=== PATIENT | female | born 1950 | race African-American/Black ===

== ENCOUNTER → 2018-08-27 | Day surgery (SDC) | payer MEDICARE ==
--- OUTSIDE RECORDS SUMMARY | 2018-08-27 08:57 | XMS REPORT ---
:1950 [facility] [address] [place] [address] [address]. [address] [place] [address] Care Team Providers Name Role Phone Unavailable Unavailable Unavailable Problems This patient has no known problems. Allergies, Adverse Reactions, Alerts This patient has no known allergies or adverse reactions. Medications This patient has no known medications.
--- OUTSIDE RECORDS SUMMARY | 2018-08-27 08:57 | XMS REPORT | Continuity of Care Document ---
:1950 Author Organization [facility] [employer] Care Team Providers Name Role Phone [employer] Unavailable Unavailable Problems Problem Status Onset Classification Date Comments Source Date Reported DX: Active 07/19/19 [facility] K80.20=CALCULUS 17 [place] OF GALLBLADDER WITHO MRSA-wound1 Active 02/23/19 Problem 01/19/2017 Problem MH 10 added by Grace Alvarez [facility] Expert. Antonio HLD - Resolved Problem 01/19/2017 Hyperlipidemia Grace Alvarez MRSA infection Resolved Problem 01/19/2017 Grace Alvarez CALCULUS OF Active [facility] GALLBLADDER W/O [place] CHOLECYSTITI Medications No Data Provided for This Section Allergies, Adverse Reactions, Alerts Substance Category Reaction Severity Reaction Status Date Comments Source type Reported penicillins Assertion Drug Active OPIRhys allergy [place] Immunizations No Data Provided for This Section Results Order Results Value Reference Date Interpretation Comments Source Name Range CHEM Creatinine 1.00 0.50 - 1.40 07/18/ Result PANEL Lvl 2017 Comment: Run Antonio on I-Stat using whole blood.07/19/19 17 11:39 by sp CHEM eGFR 68 07/18/ Result PANEL 2017 Comment: The [place] eGFR is calculated using the CKD-EPI formula. In most young, healthy individuals the eGFR will be >90 mL/min/1.73m2. The eGFR declines with age. An eGFR of 60-89 may be normal in some populations, particularly the elderly, for whom the CKD-EPI formula has not been extensively validated. Use of the eGFR is not recommended in the following populations:<b r/>
Indivi duals with unstable creatinine concentrations , including patients and those with serious co-morbid conditions.

Patient s with extremes in muscle mass or diet.

The data above are obtained from the National Kidney Disease Education Program (NKDEP) which additionally recommends that when the eGFR is used in patients with extremes of body mass index for purposes of drug dosing, the eGFR should be multiplied by the estimated BMI. Pathology Reports No Data Provided for This Section Diagnostic Reports Report Value Date Source Abdomen w/wo IV Abdomen w/wo IV contrast CT 01/16/[address] [place] [address] TECHNIQUE: Contiguous transaxial images of the abdomen were performed from the lung bases to the superior pubic rami without and with IV contrast. CLINICAL HX: - renal mass; COMPARISON: CT abdomen pelvis 07/18/2016, MRI abdomen 08/12/2016 FINDINGS: NONCONTRAST CT images: No tract calculi are evident. CT ABDOMEN with: Lower Chest: The lung bases are clear. GI Tract: Moderate to large amount of retained stool is present in the visualized portion of the colon. No evidence to suggest small or large bowel obstruction. There is no evidence for free fluid or free air in the abdomen. Tract and retroperitoneum: 14 mm x 11 mm heterogeneous density lesion in the upper pole of right kidney laterally is unchanged in size and appearance from previous CT of 07/18/2016. Tiny cyst, lower pole of right kidney, unchanged. No significant retroperitoneal lymphadenopathy is noted. Abdominal viscera: Mild fatty infiltration of liver. The spleen, pancreas and both adrenals are unremarkable in appearance. Cholelithiasis. Vasculature: Aortoiliac atherosclerotic disease. Bone and Soft tissues: Large ventral abdominal hernia containing small bowel and large bowel similar to previous study. No evidence for small or large bowel obstruction. No significant bony abnormality is noted. IMPRESSION: Heterogeneously dense lesion in the upper pole of right kidney superiorly and laterally is stable in size and appearance from previous CT and MR studies. Additional six-month follow-up either with pre a nd postcontrast CT or pre and postcontrast MRI is recommended to document continued stability. Gallbladder is mildly contracted. Cholelithiasis. Very large ventral abdominal hernia unchanged from previous study. No significant interval change from previous study of 07/18/2016. SL: [id number] Abdomen w/wo contrast Abdomen w/wo contrast MRI 08/12/2016 10:47 AM CDT 2016 ALDO Alvarez MRI Ordering Physician: Moses Lamb MD CLINICAL INDICATION: K80.20 Calculus of gallbladder without cholecystitis without obstruction;N28.89 Other specified disorders of kidney and ureter - N28.89 Other specified disorders of kidney and ureter; COMPARISON: Abdominopelvic CT 07/18/2016 TECHNIQUE: Multiplanar, multisequence magnetic resonance images of the abdomen were obtained without IV gadolinium contrast. Subsequent T1 fat- suppressed post-IV gadolinium contrast dynamic phase imaging was performed. FINDINGS: Right kidney superolateral cortical oval-shaped lesion measuring 1 x 1.5 x 1 cm demonstrates T2 hypointensity, T1 isointensity, and no enhancement. No other enhancing renal mass is present in either kid aisha. Tiny right renal inferior pole cortical cyst is present. No hydronephrosis is present. Liver reveals no focal signal abnormality or enhancing mass. No intrahepatic or extrahepatic delivery duct dilatation is present. Contracted gallbladder contains a few gallstones. Common bile duct measures 6 mm in caliber. Spleen, pancreas, and adrenal glands are normal. Vascular structures are patent. No lymphadenopathy is present. IMPRESSION: Right renal superolateral cortical 1 x 1.5 x 1 (craniocaudal) cm noncystic yet nonenhancing mass. Recommend repeat MRI abdomen without and with IV contrast in 6 months to assess for potential growth or stability. SL: [id number] Abdomen w IV contrast Patient Name: RAMYA HDEZ 07/18/2016 [facility] CT : 1950; Age: 66 years y/o Female MR: [id number] * I. COMPUTED TOMOGRAPHY SCAN OF THE ABDOMEN with contrast. HISTORY: Generalized nonspecific abdominal pain, cholelithiasis. COMPARISON: None * TECHNIQUE: I. COMPUTED TOMOGRAPHY SCAN OF THE ABDOMEN with contrast: Helical CT images were obtained on a multidetector computed tomography from the domes the diaphragms to the the mid pelvis following the intravenous administration of nonionic iodinated contrast. Oral contrast was also provided. Coronal and sagittal reconstructions were obtained. CT radiation dose DLP: 1271 mGy-cm FINDINGS: There is no evidence of an acute intra-abdominal process. There is no free intraperitoneal gas, intra-abdominal abscess, focal inflammation, or bowel obstruction. There is cholelithiasis. Multiple small gallstones are noted. The gallbladder is contracted. The common bile duct is borderline on the order of 5.5 -- 6 mm in diameter. There is no intrahepatic ductal dilatation. There is a very small (approximately 13 x 11 mm) low-density lesion involving the lateral aspect the upper -- mid polar region of the right kidney best seen on image 31. This does not meet the criteria for simple cyst. Therefore, a small renal neoplasm cannot be excluded. Comparison with any prior studies, if available, would be helpful. If these are not available, further evaluation by magnetic reson ance imaging or continued follow-up studies may be indicated. There is a very large anterior abdominal wall hernia. There is a very large defect in the anterior abdominal wall measuring approximately 13.5 cm in diameter. There is herniation of small bowel and colo n limiting the appendix into the hernia. The hernia is patulous and therefore there is no evidence of obstruction. There is moderate left-sided colonic diverticulosis. There is no evidence of diverticul itis. The gastrointestinal structures are otherwise unremarkable. A normal appendix is visualized. The kidneys are slightly small in size. The right kidney measures 9 cm in length and the left kidney is 9.7 cm in length. The kidneys are otherwise unremarkable. No hydronephrosis. No calculi are seen. There are mild diffuse fatty changes involving the liver. The liver is otherwise unremarkable. Focal lesions are seen. The spleen, pancreas, and adrenal glands are normal in appearance. There are moderate atherosclerotic calcifications involving the abdominal aorta and iliac arteries. There is no aneurysm. The uterus is enlarged secondary to fibroid measuring 3.3 cm exophytic fibroid arising from the right side of the uterine body. There is focal bulge in the anterior aspect of the uterus probably representing a 3 cm fibroid. No other mass or adenopathy is seen within the abdomen or pelvis. There is no ascites or other fluid collection. The aorta is normal in caliber. The visualized lung bases are clear. There are no pleural effusions. There is borderline cardiomegaly. There is no pericardial effusion. Coronary artery calcifications are noted. There are mild scattered degenerative changes involving the visualized spine. The regional skeleton is otherwise unremarkable. No blastic or destructive lesions are seen. IMPRESSION: 1. No evidence of an acute intra-abdominal process. 2. Cholelithiasis. The common bile duct is slightly prominent. 3. Very small indeterminate right renal lesion. A small neoplasm cannot be excluded. Please see discussion above. 4. The kidneys are slightly small in size without hydronephrosis. 5. Very large anterior abdominal wall hernia. 6. Uterine fibroids. 7. Atherosclerosis including coronary artery calcifications. SL: [id number] Consultation Notes No Data Provided for This Section Discharge Summaries No Data Provided for This Section History and Physicals No Data Provided for This Section Vital Signs No Data Provided for This Section Encounters Location Location Encounter Encounter Reason Attending ADM DC Status Source Details Type Number For Provider Date Date [id number] Moses 07/18 07/19 [place] [facility] Outpt Diag [id number] Moses 08/12 08/13 [facility] Out[facility] Diag [id number] Moses 01/16 01/17 [facility] Procedures Procedure Code Date Perfomer Comments Source Bilateral tubal [id number] [facility] ligation [place] [facility] [id number] [facility] herniorrhaphy [place] Bilateral tubal [id number] [facility] ligation Ventral [id number] [facility] herniorrhaphy Assessment and Plan No Data Provided for This Section Plan of Care No Data Provided for This Section Social History Social History Date Source Social History TypeResponse 12/03/2013 [facility] [place] Substance Abuse Use: Past. Type: Marijuana. Recreational Drug Route: Inhaled. Amount: in her 20's. Previous Treatment: None. IV drug use: No. Drug use interferes with work/home: No. Ready to change: No. Household substance abuse concerns: No. Alcohol Past, Type Beer, Wine, Liquor. Frequency: 1-2 times per year. Previous treatment: None. Alcohol use interferes with work or home: No. Drinks more than intended: No. Others hurt by drinking: No. Re serjio to change: No. Household alcohol concerns: No. Smoking Status Former smoker; Type: Cigarettes; Exposure to Tobacco Smoke None; Cigarette Smoking Last 365 Days No; Reg Smoking Cessation Counseling No; Started at age: 28.0; Stopped at age: 56; Social History TypeResponse 12/03/2013 [facility] Substance Abuse Use: Past. Type: Marijuana. Recreational Drug Route: Inhaled. Amount: in her 20's. Previous Treatment: None. IV drug use: No. Drug use interferes with work/home: No. Ready to change: No. Household substance abuse concerns: No. Alcohol Past, Type Beer, Wine, Liquor. Frequency: 1-2 times per year. Previous treatment: None. Alcohol use interferes with work or home: No. Drinks more than intended: No. Others hurt by drinking: No. Re serjio to change: No. Household alcohol concerns: No. Smoking Status Former smoker; Type: Cigarettes; Started at age: 28.0; Stopped at age: 56; Exposure to Tobacco Smoke None; Cigarette Smoking Last 365 Days No; Reg Smoking Cessation Counseling No Family History No Data Provided for This Section Advance Directives No Data Provided for This Section Functional Status No Data Provided for This Section
--- NOTE | 2018-08-27 11:08 | RAD REPORT ---
EXAM DESCRIPTION: Ultrasound-guided vacuum assisted left breast core biopsy CLINICAL HISTORY: Breast mass x 2 N63.21, N63.22 COMPARISON: Breast Core BX Addtnl dated 08/27/2018 FINDINGS: Informed consent was obtained and time-out was performed. The patient's left breast was prepped and draped in the usual sterile fashion. 1% lidocaine was used for local anesthetic purposes. Utilizing aseptic technique and ultrasound guidance, a 12 gauge vacuum assisted core biopsy device wa s used to obtain 1 core specimens through the larger mass 11 o'clock position superiorly measuring 16 mm. A post biopsy clip was then placed. All collected material was sent for cytology. Patient tolerated procedure well. IMPRESSION: Successful ultrasound guided vacuum assisted left breast mass biopsy. This biopsy was of the larger mass positioned at 11 o'clock superiorly measuring 16 mm.
--- NOTE | 2018-08-27 11:11 | RAD REPORT ---
EXAM DESCRIPTION: Ultrasound-guided vacuum assisted left breast core biopsy CLINICAL HISTORY: Breast mass MASS X2 COMPARISON: No comparisons FINDINGS: Informed consent was obtained and time-out was performed. The patient's left breast was prepped and draped in the usual sterile fashion. 1% lidocaine was used for local anesthetic purposes. Utilizing aseptic technique and ultrasound guidance, a 12 gauge vacuum assisted core biopsy device wa s used to obtain 1 core specimens through the second mass of interest positioned at 11 o'clock periar eolar location measuring 10 mm. A post biopsy clip was then placed. All collected material was sent for cytology. Patient tolerated procedure well. IMPRESSION: Successful ultrasound guided vacuum assisted left breast mass biopsy. This biopsy is of the second toe smaller lesion of interest located 11 o'clock position periareolar.
== END ==
LOC: DS 08:49
PROVIDERS: ATTEND Nurse Practitioner Adult Health
DX: C50.912 Malignant neoplasm of unspecified site of left female breast (principal); Z17.0 Estrogen receptor positive status [ER+]
CPT/HCPCS: 19083; 19084; 88305

== ENCOUNTER 2023-10-30 10:05 | Inpatient (IN) | payer OTHER ==
[2023-10-30 11:22] LABS: Absolute Eosinophils 0.3 K/uL (0-0.5); Absolute Lymphocytes (CBC) 0.6 K/uL (0.7-4.9); Absolute Monocytes 0.4 K/uL (0.1-1.3); Absolute Neutrophil 3.1 K/uL (1.8-8.0); Basophils % 0.6 % (0-1.3); Eosinophils % 6.2 % (0-4.4); Hematocrit 34.9 % (36.0-45.0); Hemoglobin 11.2 g/dL (12.0-15.0); Lymphocytes % 13.7 % (15.3-44.8); MCH 30.3 pg (27.0-35.0); MCHC 32.1 g/dL (32.0-36.0); MCV 94.3 fL (80-100); MPV 8.6 fL (7.6-11.3); Monocytes % 8.7 % (3.3-12.3); Neutrophils % 70.8 % (41.7-73.7); Platelets 242 thou/uL (152-406); Red Cell Distribution Width 14.4 % (12.1-15.2)
[2023-10-30 11:26] LABS: PT Prothrombin Time 12.5 SECONDS (9.4-12.5); Protime INR 1.12
--- NOTE | 2023-10-30 11:38 | ER ---
Nurse's Notes [facility] Name: Romelia Billings Age: 73 yrs Sex: Female : 1950 Arrival Date: 10/30/2023 Time: 10:05 Bed 20 Private MD: Diagnosis: GI Bleed/ Gastrointestinal hemorrhage, unspecified-lower;Abnormal levels of other serum enzymes-elevated troponin Presentation: 10/29 10:14 Chief complaint: Patient states: this morning had some rectal bleeding, dark red with tm6 clots. Had breast cancer, removed August 10, currently getting radiation. Coronavirus screen: Client denies travel out of the [place] in the last 14 days. Ebola Screen: Patient negative for fever greater than or equal to 101.5 degrees Fahrenheit, and additional compatible Ebola Virus Disease symptoms Patient denies exposure to infectious person. Patient denies travel to an Ebola-affected area in the 21 days before illness onset. No symptoms or risks identified at this time. Initial Sepsis Screen: Does the patient meet any 2 criteria? No. Patient's initial sepsis screen is negative. Does the patient have a suspected source of infection? No. Patient's initial sepsis screen is negative. Risk Assessment: Do you want to hurt yourself or someone else? Patient reports no desire to harm self or others. Onset of symptoms was October 30, 2023. 10:14 Method Of Arrival: Ambulatory tm6 10:14 Acuity: FORTINO 3 tm6 Triage Assessment: 10:16 General: Appears in no apparent distress. Behavior is calm, cooperative. Pain: Denies tm6 pain. EENT: No signs and/or symptoms were reported regarding the EENT system. Neuro: Level of Consciousness is awake, alert, obeys commands, Oriented to person, place, time, situation. Cardiovascular: Patient's skin is warm and dry. Respiratory: Airway is patent Respiratory effort is even, unlabored. GI: Reports rectal bleeding, bloody stool. : No signs and/or symptoms were reported regarding the genitourinary system. Derm: No signs and/or symptoms reported regarding the dermatologic system. Musculoskeletal: No signs and/or symptoms reported regarding the musculoskeletal system. Historical: - Allergies: 10:16 No Known Allergies; tm6 - PMHx: 10:16 breast cancer; Hypertensive disorder; Diabetes mellitus; tm6 - PSHx: 10:16 Lumpectomy of breast; hernia repair; tm6 - Immunization history:: Client reports receiving the 2nd dose of the Covid vaccine. - Infectious Disease History:: Denies. - Social history:: Smoking status: Patient denies any tobacco usage or history of. Screenin:09 [facility] ED Fall Risk Assessment (Adult) History of falling in the last 3 months, ld1 including since admission No falls in past 3 months (0 pts) Confusion or Disorientation No (0 pts) Intoxicated or Sedated No (0 pts) Impaired Gait No (0 pts) Mobility Assist Device Used No (0 pt) Altered Elimination No (0 pt) Score/Fall Risk Level 0 - 2 = Low Risk Oriented to surroundings, Maintained a safe environment, Educated pt \T\ family on fall prevention, incl call for assistance when getting out of bed, Assessed \T\ reinforced patient's understanding of fall precautions, Provided non-skid footwear, Hourly rounding (assess needs \T\ fall precautionary measures) done, Used ambulatory aids as needed (educated on \T\ assisted with), Used gait belt as appropriate. Abuse screen: Denies threats or abuse. Denies injuries from another. Nutritional screening: No deficits noted. Tuberculosis screening: No symptoms or risk factors identified. Assessment: 11:09 General: Appears in no apparent distress. comfortable, Behavior is calm, cooperative, ld1 appropriate for age. Pain: Denies pain. Neuro: Level of Consciousness is awake, alert, obeys commands, Oriented to person, place, time, situation, Appropriate for age. Cardiovascular: Capillary refill < 3 seconds Patient's skin is warm and dry. Respiratory: Airway is patent Respiratory effort is even, unlabored. GI: Abdomen is round non-distended. GI: Reports rectal bleeding. : No signs and/or symptoms were reported regarding the genitourinary system. : Reports Denies. EENT: No signs and/or symptoms were reported regarding the EENT system. Derm: No signs and/or symptoms reported regarding the dermatologic system. Musculoskeletal: No signs and/or symptoms reported regarding the musculoskeletal system. 12:18 Reassessment: Patient appears in no apparent distress at this time. No changes from ld1 previously documented assessment. Patient and/or family updated on plan of care and expected duration. Pain level reassessed. Patient is alert, oriented x 3, equal unlabored respirations, skin warm/dry/pink. 13:52 General: Appears in no apparent distress. Behavior is calm, cooperative. Neuro: GCS 15. hb Cardiovascular: Patient's skin is warm and dry. Respiratory: Respiratory effort is even, unlabored, Respiratory pattern is regular, symmetrical. 13:53 Reassessment: Pt admitted, awaiting admission orders and bed assignment. Pt updated on hb POC. Family at bedside. 15:30 Reassessment: Patient appears in no apparent distress at this time. No changes from hb previously documented assessment. Patient and/or family updated on plan of care and expected duration. Pain level reassessed. Patient is alert, oriented x 3, equal unlabored respirations, skin warm/dry/pink. 16:30 Reassessment: Patient appears in no apparent distress at this time. No changes from hb previously documented assessment. Patient and/or family updated on plan of care and expected duration. Pain level reassessed. 18:00 Reassessment: Patient appears in no apparent distress at this time. No changes from hb previously documented assessment. Patient and/or family updated on plan of care and expected duration. Pain level reassessed. Vital Signs: 10:13 BP 108 / 65; Pulse 84; Resp 17; Temp 97.9; Pulse Ox 100% on R/A; MAP 79 mmHg; Weight tm6 83.46 kg; Height 5 ft. 1 in. ; Pain 0/10; 11:09 Pulse 72; Resp 18; Pulse Ox 100% on R/A; Pain 8/10; ld1 12:18 BP 91 / 66; Pulse 64; Resp 18; Pulse Ox 100% on R/A; ld1 13:53 BP 97 / 61; Pulse 67; Resp 16; Pulse Ox 99% on R/A; hb 16:00 BP 100 / 60; Pulse 66; Resp 15; Pulse Ox 99% ; hb 18:30 BP 92 / 62; Pulse 63; Resp 17; Pulse Ox 100% on R/A; hb 10:13 Body Mass Index 34.77 (83.46 kg, 154.94 cm) tm6 10:13 Pain Scale: Adult tm6 11:09 Pain Scale: Adult ld1 ED Course: 10:08 Patient arrived in ED. im 10:16 Triage completed. tm6 10:16 Arm band placed on right wrist. tm6 10:18 Cuong Dubose MD is Attending Physician. [facility] 10:43 Dulce Maria Tirado, DASHA is Primary Nurse. ld1 11:09 Patient has correct armband on for positive identification. Placed in gown. Bed in low ld1 position. Call light in reach. Side rails up X2. practical nurse clinical coordinator on. Pulse ox on. NIBP on. Door closed. Noise minimized. Warm blanket given. 11:09 Type And Screen Sent. ld1 11:09 No provider procedures requiring assistance completed. ld1 11:09 Missed attempt(s): 22 gauge in right antecubital area. ld1 11:13 Initial lab(s) drawn, by ga, sent to lab. Inserted saline lock: 24 gauge in right bc6 wrist, using aseptic technique. Blood collected. Flushed with 10 mL NS. 11:37 XRAY Chest (1 view) In Process Unspecified. EDMS 11:37 Venkat Dunn MD is Hospitalizing Provider. [facility] 11:57 CT Abd/Pelvis - IV Contrast Only In Process Unspecified. EDMS 13:15 Provided Education on: use of call light . 13:15 Urinalysis w/ reflexes Sent. ld1 18:55 Patient admitted, IV remains in place. hb Administered Medications: 12:17 Drug: NS 0.9% IV 1000 ml IV at 1 bolus Per protocol; 1000 mL bolus Route: IV; Rate: 1 ld1 bolus; Site: right forearm; 12:17 Drug: metroNIDAZOLE IVPB 500 mg 100 ml IVPB at 200 ml/hr once over 30 mins Volume: 100 ld1 ml; Route: IVPB; Rate: 200 ml/hr; Infused Over: 30 mins; Site: right forearm; 13:09 Drug: Ciprofloxacin IVPB 400 mg 200 ml IVPB once over 60 mins Volume: 200 ml; Route: ld1 IVPB; Infused Over: 60 mins; Site: right forearm; Medication: 11:09 VIS not applicable for this client. ld1 Outcome: 11:37 Decision to Hospitalize by Provider. mack 18:[address] [facility] 18:55 Condition: stable 18:55 Discharge instructions given to family, Instructed on the need for admit, Demonstrated understanding of instructions, 18:58 Patient left the ED. aa5 Signatures: Dispatcher [employer] EDNV Cuong Dubose MD MD cha Calderon, Audri, RN RN aa5 Daxa Lim RN RN hb Dulce Maria Tirado, RN RN ld1 Erica Lomas 6 My Walker Tawney, RN RN tm6
--- NOTE | 2023-10-30 11:38 | EDPHYS ---
Physician Documentation [facility] Name: Romelia Billings Age: 73 yrs Sex: Female : 1950 Arrival Date: 10/30/2023 Time: 10:05 Bed 20 Private MD: SEBASTIAN Physician Cuong Dubose HPI: 10/29 11:27 This 73 yrs old Black Female presents to ER via Ambulatory with complaints of Rectal mack Bleeding. 11:27 The patient presents to the emergency department with bleeding from the rectum/anus, mack that is moderate. Onset: The symptoms/episode began/occurred 1 day(s) ago. Context: the patient has no known special context relating to the rectal area complaint(s). Modifying factors: The symptoms are alleviated by nothing, The symptoms are aggravated by bowel movement. Associate signs and symptoms: The patient has no apparent associated signs or symptoms. The patient has not experienced similar symptoms in the past. Historical: - Allergies: 10:16 No Known Allergies; tm6 - PMHx: 10:16 breast cancer; Hypertensive disorder; Diabetes mellitus; tm6 - PSHx: 10:16 Lumpectomy of breast; hernia repair; tm6 - Immunization history:: Client reports receiving the 2nd dose of the Covid vaccine. - Infectious Disease History:: Denies. - Social history:: Smoking status: Patient denies any tobacco usage or history of. ROS: 11:29 Constitutional: Negative for fever, chills, and weight loss, Eyes: Negative for injury, mack pain, redness, and discharge, ENT: Negative for injury, pain, and discharge, Neck: Negative for injury, pain, and swelling, Cardiovascular: Negative for chest pain, palpitations, and edema, Respiratory: Negative for shortness of breath, cough, wheezing, and pleuritic chest pain, Back: Negative for injury and pain, : Negative for injury, bleeding, discharge, and swelling, MS/Extremity: Negative for injury and deformity, Skin: Negative for injury, rash, and discoloration, Neuro: Negative for headache, weakness, numbness, tingling, and seizure, Psych: Negative for depression, anxiety, suicide ideation, homicidal ideation, and hallucinations, Allergy/Immunology: Negative for hives, rash, and allergies, Endocrine: Negative for neck swelling, polydipsia, polyuria, polyphagia, and marked weight changes, Hematologic/Lymphatic: Negative for swollen nodes, abnormal bleeding, and unusual bruising, 11:29 Abdomen/GI: Positive for rectal bleeding, Exam: 11:29 Constitutional: This is a well developed, well nourished patient who is awake, alert, mack and in no acute distress. Head/Face: Normocephalic, atraumatic. Eyes: Pupils equal round and reactive to light, extra-ocular motions intact. Lids and lashes normal. Conjunctiva and sclera are non-icteric and not injected. Cornea within normal limits. Periorbital areas with no swelling, redness, or edema. ENT: Nares patent. No nasal discharge, no septal abnormalities noted. Tympanic membranes are normal and external auditory canals are clear. Oropharynx with no redness, swelling, or masses, exudates, or evidence of obstruction, uvula midline. Mucous membranes moist. Neck: Trachea midline, no thyromegaly or masses palpated, and no cervical lymphadenopathy. Supple, full range of motion without nuchal rigidity, or vertebral point tenderness. No Meningismus. Chest/axilla: Normal chest wall appearance and motion. Nontender with no deformity. No lesions are appreciated. Cardiovascular: Regular rate and rhythm with a normal S1 and S2. No gallops, murmurs, or rubs. Normal PMI, no JVD. No pulse deficits. Respiratory: Lungs have equal breath sounds bilaterally, clear to auscultation and percussion. No rales, rhonchi or wheezes noted. No increased work of breathing, no retractions or nasal flaring. Abdomen/GI: Soft, non-tender, with normal bowel sounds. No distension or tympany. No guarding or rebound. No evidence of tenderness throughout. Back: No spinal tenderness. No costovertebral tenderness. Full range of motion. Skin: Warm, dry with normal turgor. Normal color with no rashes, no lesions, and no evidence of cellulitis. MS/ Extremity: Pulses equal, no cyanosis. Neurovascular intact. Full, normal range of motion. Neuro: Awake and alert, GCS 15, oriented to person, place, time, and situation. Cranial nerves II-XII grossly intact. Motor strength 5/5 in all extremities. Sensory grossly intact. Cerebellar exam normal. Normal gait. Psych: Awake, alert, with orientation to person, place and time. Behavior, mood, and affect are within normal limits. 11:29 ECG was reviewed by the Attending Physician. 11:29 Abdomen/GI: Inspection: abdomen appears normal, Bowel sounds: normal, Palpation: abdomen is soft and non-tender, Rectal exam: hemorrhoid(s), are not appreciated, mass, is not appreciated, swelling, is not appreciated, tenderness, is not appreciated, fecal impaction, is not appreciated, the exam is chaperoned by a family member, maroon stools, no melena. Vital Signs: 10:13 BP 108 / 65; Pulse 84; Resp 17; Temp 97.9; Pulse Ox 100% on R/A; MAP 79 mmHg; Weight tm6 83.46 kg; Height 5 ft. 1 in. ; Pain 0/10; 11:09 Pulse 72; Resp 18; Pulse Ox 100% on R/A; Pain 8/10; ld1 12:18 BP 91 / 66; Pulse 64; Resp 18; Pulse Ox 100% on R/A; ld1 13:53 BP 97 / 61; Pulse 67; Resp 16; Pulse Ox 99% on R/A; hb 16:00 BP 100 / 60; Pulse 66; Resp 15; Pulse Ox 99% ; hb 18:30 BP 92 / 62; Pulse 63; Resp 17; Pulse Ox 100% on R/A; hb 10:13 Body Mass Index 34.77 (83.46 kg, 154.94 cm) tm6 10:13 Pain Scale: Adult tm6 11:09 Pain Scale: Adult ld1 MDM: 10:18 Patient medically screened. mack 11:33 Differential diagnosis: diverticulitis, hemorrhagic shock, varices, hemorrhoids, mack fissure. Data reviewed: vital signs, nurses notes, lab test result(s), EKG, radiologic studies, CT scan, plain films. Consideration of Admission/Observation Patient was admitted/placed on observation. Escalation of care including admission/observation considered. I considered the following discharge prescriptions or medication management in the emergency department Medications were administered in the Emergency Department. See MAR. Independent interpretation of the following test(s) in the Emergency Department EKG: See my EKG interpretation above. Test considered but Not performed: Ultrasound no abd usg. Historians other than the Patient: Family Member: family well informed. Care significantly affected by the following chronic conditions: Hypertension, Obesity, Cancer. Counseling: I had a detailed discussion with the patient and/or guardian regarding the historical points, exam findings, and any diagnostic results supporting the discharge/admit diagnosis, lab results, radiology results, the need for further work-up and treatment in the hospital. 10/29 10:19 Order name: Basic Metabolic Panel; Complete Time: 11:55 [facility] 10/29 10:19 Order name: CBC with Diff; Complete Time: 11:38 mack 10/29 10:19 Order name: LFT's; Complete Time: 11:55 [facility] 10/29 10:19 Order name: Magnesium; Complete Time: 11:55 [facility] 10/29 10:19 Order name: NT PRO-BNP; Complete Time: 11:55 [facility] 10/29 10:19 Order name: PT-INR; Complete Time: 11:38 [facility] 10/29 10:19 Order name: Troponin HS; Complete Time: 11:55 [facility] 10/29 10:19 Order name: Lipase; Complete Time: 11:55 [facility] 10/29 10:19 Order name: Urinalysis w/ reflexes [facility] 10/29 10:19 Order name: Type And Screen [facility] 10/29 14:19 Order name: Type and Screen [facility] 10/29 14:19 Order name: CBC with Automated Diff [facility] 10/29 14:19 Order name: CBC with Automated Diff [facility] 10/29 14:19 Order name: Hematocrit [facility] 10/29 14:19 Order name: Hematocrit [facility] 10/29 14:19 Order name: Hematocrit [facility] 10/29 14:19 Order name: Hemoglobin [facility] 10/29 14:19 Order name: Hemoglobin [facility] 10/29 14:19 Order name: Hemoglobin [facility] 10/29 14:19 Order name: Protime (+INR) [facility] 10/29 14:19 Order name: Protime (+INR) [facility] 10/29 14:19 Order name: PTT, Activated Partial Thromb [facility] 10/29 14:19 Order name: PTT, Activated Partial Thromb [facility] 10/29 14:19 Order name: Troponin High Sensitivity [facility] 10/29 14:19 Order name: Troponin High Sensitivity [facility] 10/29 14:19 Order name: Troponin High Sensitivity [facility] 10/29 14:19 Order name: Troponin High Sensitivity [facility] 10/29 10:19 Order name: XRAY Chest (1 view); Complete Time: 11:55 [facility] 10/29 10:19 Order name: CT Abd/Pelvis - IV Contrast Only [facility] 10/29 14:19 Order name: CONS Physician Consult [facility] 10/29 14:19 Order name: EKG Electrocardiogram [facility] 10/29 14:19 Order name: EKG Electrocardiogram [facility] 10/29 14:19 Order name: EKG Electrocardiogram [facility] 10/29 14:19 Order name: EKG Electrocardiogram [facility] 10/29 14:19 Order name: EKG Electrocardiogram [facility] 10/29 14:19 Order name: EKG Electrocardiogram [facility] 10/29 14:19 Order name: EKG Electrocardiogram [facility] 10/29 14:19 Order name: EKG Electrocardiogram [facility] 10/29 14:19 Order name: EKG Electrocardiogram [facility] 10/29 14:19 Order name: EKG Electrocardiogram [facility] 10/29 14:19 Order name: EKG Electrocardiogram [facility] 10/29 10:19 Order name: Cardiac monitoring; Complete Time: 11:09 [facility] 10/29 10:19 Order name: EKG - Nurse/Tech; Complete Time: 11: [facility] 10/29 10:19 Order name: IV Saline Lock; Complete Time: 11: [facility] 10/29 10:19 Order name: Labs collected and sent; Complete Time: 11: [facility] 10/29 10:19 Order name: O2 Per Protocol; Complete Time: 10:56 [facility] 10/29 10:19 Order name: O2 Sat Monitoring; Complete Time: 10:56 [facility] 10/29 10:19 Order name: IV Saline Lock - Large Bore; Complete Time: 11:08 [facility] EC:29 Rate is 74 beats/min. QRS [place] is Normal. LA interval is normal. QRS interval is mack normal. QT interval is normal. No Q waves. T waves are Normal. No ST changes noted. Clinical impression: Normal ECG and No evidence of ischemia. Interpreted by me. Administered Medications: 12:17 Drug: NS 0.9% IV 1000 ml IV at 1 bolus Per protocol; 1000 mL bolus Route: IV; Rate: 1 ld1 bolus; Site: right forearm; 12:17 Drug: metroNIDAZOLE IVPB 500 mg 100 ml IVPB at 200 ml/hr once over 30 mins Volume: 100 ld1 ml; Route: IVPB; Rate: 200 ml/hr; Infused Over: 30 mins; Site: right forearm; 13:09 Drug: Ciprofloxacin IVPB 400 mg 200 ml IVPB once over 60 mins Volume: 200 ml; Route: ld1 IVPB; Infused Over: 60 mins; Site: right forearm; Disposition Summary: 10/30/23 11:37 Hospitalization Ordered Notes: Hospitalization Status: Observation mack Provider: Venkat Dunn cha Condition: Stable mack Problem: new mack Symptoms: are unchanged mack Bed/Room Type: Standard mack Location: Telemetry/MedSurg (observation)(10/30/23 16:07) bd Room Assignment: 215(10/30/23 16:07) bd Diagnosis - GI Bleed/ Gastrointestinal hemorrhage, unspecified - lower mack - Abnormal levels of other serum enzymes - elevated troponin mack Forms: - Medication Reconciliation Form mack - SBAR form mack - Leadership Thank You Letter mack Signatures: Dispatcher [employer] EDMS Lizabeth Ryan Corey, MD MD cha Sims, Lauren RN RN ld1 Silverio Le RN RN tm6 Corrections: (The following items were deleted from the chart) 10:20 10:20 BASIC METABOLIC PANEL+C.LAB.BRZ ordered. EDMS EDMS 10:20 10:20 CBC+H.LAB.BRZ ordered. EDMS EDMS 10:20 10:20 HEPATIC FUNCTION+C.LAB.BRZ ordered. EDMS EDMS 10:20 10:20 MAGNESIUM+C.LAB.BRZ ordered. EDMS EDMS 10:20 10:20 PROBNP+C.LAB.BRZ ordered. EDMS EDMS 10:20 10:20 PROTIME (+INR)+COAG.LAB.BRZ ordered. EDMS EDMS 10:20 10:20 Troponin High Sensitivity+C.LAB.BRZ ordered. EDMS EDMS 10:20 10:20 LIPASE+C.LAB.BRZ ordered. EDMS EDMS 10:20 10:20 Urinalysis+U.LAB.BRZ ordered. EDMS EDMS 10:20 10:20 TYPE AND SCREEN+BB.LAB.BRZ ordered. EDMS EDMS 10:20 10:20 Chest Single View+RAD.RAD.BRZ ordered. EDMS EDMS 10:20 10:20 Abdomen Pelvis W Con+CT.RAD.BRZ ordered. EDMS EDMS 12:54 11:37 Telemetry/MedSurg (Inpatient) mack bd 12:54 11:37 mack bd 16:07 12:54 BR ER HOLD bd bd 16: 12:54 ERHOLD- bd bd
[2023-10-30 11:41] LABS: ALT/SGPT 19 U/L (13-56); AST/SGOT 16 U/L (15-37); Albumin 3.6 g/dL (3.4-5.0); Albumin/Globulin Ratio 0.8 (1.1-1.8); Alkaline Phosphatase 80 U/L (45-117); Anion Gap 9.7 mEq/L (5.0-15.0); BUN Blood Urea Nitrogen 41 mg/dL (7-18); Bicarbonate 22 mEq/L (21-32); Bilirubin Total 0.4 mg/dL (0.2-1.0); Globulin 4.5 g/dL (2.3-3.5); Glomerular Filtration Rate 53 ml/min (=/>90); Glucose Level 97 mg/dL (74-106); Lipase 16 U/L (13-75); Magnesium 1.9 mg/dL (1.6-2.4); NT PRO-BNP 167 pg/mL (<125); Potassium 3.7 mEq/L (3.5-5.1); Protein, Total 8.1 g/dL (6.4-8.2); Sodium Level 135 mEq/L (136-145)
[2023-10-30] MEDS ORDERED: CIPROFLOXACIN 400mg IV 400 MG/200 ML BAG IV ONE (11:41)
[2023-10-30] MEDS ORDERED: METRONIDAZOLE 500mg IVPB 500 MG/100 ML BAG IV ONE (11:41)
[2023-10-30] MEDS ORDERED: NA CHLORIDE 0.9% 1,000 ML ONE (11:41)
[2023-10-30 11:42] LABS: Bilirubin Direct < 0.2 mg/dL (0-0.2); Bilirubin Indirect, Calculated 0.2 mg/dL (0.2-0.8)
--- NOTE | 2023-10-30 11:51 | RAD REPORT ---
EXAMINATION: ONE VIEW CHEST XR CLINICAL INDICATION: Female, 73 years old. . [facility] MAIN COUGH Bed:IW2 TECHNIQUE: Frontal chest projection is submitted. Examination is limited by patient positioning and t echnique. COMPARISON: 12/17/2021 FINDINGS: The lungs are well inflated and clear. The heart is upper limit of normal in size. Left-sided postsur gical clips. IMPRESSION: No acute intrathoracic abnormalities.
--- NOTE | 2023-10-30 12:09 | RAD REPORT ---
EXAMINATION: CT ABDOMEN AND PELVIS WITH CONTRAST CLINICAL INDICATION: Female, 73 years old. [facility] MAIN ABD PAIN IV ONLY TECHNIQUE: CT abdomen and pelvis was performed, after the administration of IV contrast, as per [facility] protocol. Axial, sagittal and coronal reconstructions were obtained. One or more of the following dose reduction techniques were used: Automated exposure control, adjustment of the mA and k V according to patient size, and iterative reconstruction. Unless otherwise specified, incidental findings do not require dedicated imaging follow-up. COMPARISON: 09/08/2023 FINDINGS: LOWER CHEST: The visualized lung bases are clear. LIVER: Mild fatty liver is present. No focal lesion or biliary dilatation is seen. 3 cm benign cyst left lobe of the liver. SPLEEN: Normal size. No focal lesion. PANCREAS: No mass, ductal dilation, or haider-pancreatic fluid. ADRENALS: Normal; no mass. KIDNEYS: Normal size and contour. No hydronephrosis. GASTROINTESTINAL TRACT: No evidence of free air, significant intra-abdominal free fluid, bowel obstru ction or abscess. Large ventral hernia/panniculus. Significant fecal retention is seen in the rectosigmoid colon with prominent diverticulosis coli affecting the descending colon and sigmoid colo n. APPENDIX: Normal appendix. LYMPH NODES: No lymphadenopathy. MUSCULOSKELETAL: Mild multilevel spinal degenerative changes. ADDITIONAL FINDINGS: Enlarged fibroid uterus. IMPRESSION: Significant diverticulosis coli affects the descending colon and sigmoid colon with moderate rectosig moid fecal retention.Follow-up colonoscopy may be of value if not recently performed. Large ventral hernia/panniculus.
[2023-10-30 13:29] LABS: Specific Gravity > 1.030 (1.005-1.030); Sqamous Epithelial <5 /HPF (None Seen); Urine Bacteria None Seen /HPF (<20); Urine Bilirubin NEGATIVE (Negative); Urine Blood 1+ (Negative); Urine Clarity Clear (Clear); Urine Color Light-Yellow (Yellow); Urine Culture Reflex Order NOT NEEDED; Urine Glucose NEGATIVE (Negative); Urine Ketones NEGATIVE (Negative); Urine Microscopic Reflex YN ORDER UMIC; Urine Mucus Slight /HPF (None Seen); Urine Nitrite NEGATIVE (Negative); Urine Protein NEGATIVE (Negative); Urine RBC <5 /HPF (None Seen); Urine Urobilinogen Normal (Normal); Urine WBC None Seen /HPF (<5); Urine pH 6.5 (5.0-7.0)
[2023-10-30] MEDS ORDERED: ACETAMINOPHEN 500 MG TAB PO PRN (14:12)
[2023-10-30] MEDS ORDERED: ONDANSETRON 4 MG/2 ML VIAL IV PRN (14:12)
--- NOTE | 2023-10-30 14:18 | P.HP ---
Certification for Inpatient Patient admitted to: Inpatient With expected LOS: >2 Midnights Patient will require the following post-hospital care: Home Health Services Practitioner: I am a practitioner with admitting privileges, knowledge of patient current condition, hospital course, and medical plan of care. Services: Services provided to patient in accordance with Admission requirements found in Title 42 Section 412.3 of the Code of Federal Regulations Patient History Date of Service: 10/30/23 Reason for admission: LGIB History of Present Illness: Patient is a 73-year-old female who presents to the hospital with lower GI bleeding. Patient says she woke up today and she felt okay but when she went to the restroom she noticed she had bright red blood per rectum. She decided to come into the ER for further evaluation. In the ER patient had a rectal exam which also revealed bright red blood. Patient has a history of breast cancer status postlumpectomy with radiation. Patient had been on Brilinta recently which may have precipitated her bleeding. Patient denies any prior history of hemorrhoids or polyps. ER physician spoke with general surgery, Dr. Savage, who recommended admitting the patient to the hospital for further evaluation. At this time, patient will be admitted to the hospital for further evaluation. Allergies Penicillins Allergy (Verified 10/30/23 20:17) unknown Home Medications: Acetaminophen [Tylenol Arthritis] 650 mg PO Q8HP 10/30/23 Anastrozole [Arimidex] 1 mg PO DAILY 10/30/23 Atorvastatin Calcium [Lipitor] 40 mg PO BEDTIME 10/30/23 Butalb/Acetaminophen/Caffeine [Ecpxlj-Zhtqvwrs-Qjkm 50-325-40] 1 each PO QIDP PRN 10/30/23 Chlorthalidone [Hygroton 25mg Tab] 25 mg PO DAILY 10/30/23 Hydrocodone 5/APAP 325 [Shafter 5/325] 1 tab PO BIDP PRN 10/30/23 Meclizine HCl 25 mg PO BIDP PRN 10/30/23 Meloxicam [Mobic] 15 mg PO DAILYPRN PRN 10/30/23 Metformin HCl [Glucophage] 500 mg PO DAILY WITH BREAKFAST 10/30/23 Metoprolol Succinate [Toprol Xl] 50 mg PO DAILY 10/30/23 Multivit-Min/Iron/Folic/Lutein [Centrum Silver Women Tablet] 1 each PO DAILY Topiramate [Topamax] 50 mg PO BIDP PRN 10/30/23 Vitamin D3/Vitamin K2 (Mk4) [K2 Plus D3 Tablet] 1 each PO DAILY 10/30/23 Zinc Amino Acid Chelate [Zinc] 50 mg PO DAILY 10/30/23 Zolpidem Tartrate [Ambien] 10 mg PO BEDTIME PRN PRN 10/30/23 - Past Medical/Surgical History -: Hypertension -: Breast cancer -: Atrial fibrillation -: Masectomy w/ Rad Rx - Family History Father Family History: Reviewed- Non-Contributory Mother Medical History: Heart disease Sister Medical History: Cancer Notes: 2 sisters with stomach cancer Brother Medical History: Cancer Notes: Stomach cancer. Lung cancer - Social History Smoking Status: Former smoker Alcohol use: No CD- Drugs: No Review of Systems 10-point ROS is otherwise unremarkable Physical Examination - Vital Signs Temperature: 99 F Blood Pressure: 110/80 Pulse: 60 Respirations: 20 - Physical Exam General: Alert, In no apparent distress, Oriented x3 HEENT: Atraumatic, PERRLA, Mucous membr. moist/pink, EOMI, Sclerae nonicteric Neck: Supple, 2+ carotid pulse no bruit, No LAD, Without JVD or thyroid abnormality Respiratory: Clear to auscultation bilaterally, Normal air movement Cardiovascular: Regular rate/rhythm, Normal S1 S2 Gastrointestinal: Normal bowel sounds, No tenderness Musculoskeletal: No tenderness Integumentary: No rashes Neurological: Normal gait, Normal speech, Normal strength at 5/5 x4 extr, Normal tone, Normal affect Lymphatics: No axilla or inguinal lymphadenopathy - Studies Laboratory Data (last 24 hrs) 10/30/23 10/30/23 10/30/23 11:10 11:10 11:10 WBC 4.40 Hgb 11.2 L Hct 34.9 L Plt Count 242 PT 12.5 INR 1.12 Sodium 135 L Potassium 3.7 BUN 41 H Creatinine 1.11 H Glucose 97 Magnesium 1.9 Total Bilirubin 0.4 AST 16 ALT 19 Alkaline Phosphatase 80 Lipase 16 Assessment & Plan - Problems (Diagnosis) (1) Lower gastrointestinal bleed Current Visit: Yes Status: Acute (2) Anemia due to acute blood loss Current Visit: Yes Status: Acute (3) Elevated troponin Current Visit: Yes Status: Acute (4) History of breast cancer Current Visit: Yes Status: Acute - Plan Plan: 1. Continue with IV hydration and PPI drip 2. Continue with IV antibiotics 3. Continue with pain control 4. NPO 5. Surgery consultation 6. Serial H&H, and we will monitor LFTs and lipase along with electrolytes. 7. GI and DVT prophylaxis Discharge Plan: Home Plan to discharge in: Greater than 2 days - Advance Directives Does patient have a Living Will: No Does patient have a Durable POA for Healthcare: No - Code Status/Comfort Care Code Status Assessed: Yes Code Status: Full Code Critical Care: No Time Spent Managing PTS Care (In Minutes): 45
[2023-10-30] MEDS ORDERED: NA CHLORIDE 0.9% 250 ML IV SCH (15:00)
[2023-10-30 19:35] LABS: Hemoglobin 10.3 g/dL (12.0-15.0)
[2023-10-30] MEDS: NA CHLORIDE 0.9% 1,000 ML IV SCH (20:14)
[2023-10-30] MEDS: SODIUM CHLORIDE 0.9% 10ML INJ IV SCH (20:26)
[2023-10-30] MEDS: PANTOPRAZOLE 40 MG INJ IVP SCH (20:26)
[2023-10-30] MEDS: D5 0.45 NS 1,000 ML IV SCH (22:19)
[2023-10-30 23:26] VITALS: BMI 34.7
[2023-10-30 23:56] LABS: Hematocrit 29.7 % (36.0-45.0); Hemoglobin 9.8 g/dL (12.0-15.0)
[2023-10-31] MEDS: ZOLPIDEM TARTRATE 10 MG TABLET PO PRN (00:09)
[2023-10-31 05:06] LABS: Absolute Eosinophils 0.2 K/uL (0-0.5); Absolute Lymphocytes (CBC) 0.6 K/uL (0.7-4.9); Absolute Monocytes 0.5 K/uL (0.1-1.3); Absolute Neutrophil 2.6 K/uL (1.8-8.0); Basophils % 0.7 % (0-1.3); Eosinophils % 6.1 % (0-4.4); Hematocrit 28.6 % (36.0-45.0); Hemoglobin 9.3 g/dL (12.0-15.0); Lymphocytes % 15.8 % (15.3-44.8); MCH 30.7 pg (27.0-35.0); MCHC 32.6 g/dL (32.0-36.0); MCV 94.4 fL (80-100); Monocytes % 12.6 % (3.3-12.3); Neutrophils % 64.8 % (41.7-73.7); Platelets 198 thou/uL (152-406); RBC Red Blood Cell Count 3.03 M/uL (3.86-4.86); Red Cell Distribution Width 14.5 % (12.1-15.2)
[2023-10-31 05:09] LABS: PT Prothrombin Time 12.5 SECONDS (9.4-12.5); PTT, Activated Partial Thromb 30.5 SECONDS (24.3-36.9); Protime INR 1.12
[2023-10-31 05:10] LABS: Percent Reticulocyte Count 1.32 % (0.4-2.05); RBC Red Blood Cell Count 3.04 M/uL (3.86-4.86)
--- NOTE | 2023-10-31 05:55 | P.PN ---
Date of Service: 10/31/23 subjective She reports 2 bloody stools overnight transfer to ICU for monitoring Review of Systems 10-point ROS is otherwise unremarkable Physical Examination - Vital Signs reviewed - Physical Exam General: Alert, In no apparent distress, Oriented x3 HEENT: Atraumatic, PERRLA, Mucous membr. moist/pink, EOMI, Sclerae nonicteric Neck: Supple, 2+ carotid pulse no bruit, No LAD, Without JVD or thyroid abnormality Respiratory: Clear to auscultation bilaterally, Normal air movement Cardiovascular: Regular rate/rhythm, Normal S1 S2 Gastrointestinal: Normal bowel sounds, No tenderness Musculoskeletal: No tenderness Integumentary: No rashes Neurological: Normal gait, Normal speech, Normal strength at 5/5 x4 extr, Normal tone, Normal affect Lymphatics: No axilla or inguinal lymphadenopathy Assessment & Plan - Problems (Diagnosis) (1) Lower gastrointestinal bleed Current Visit: Yes Status: Acute (2) Anemia due to acute blood loss Current Visit: Yes Status: Acute (3) Elevated troponin Current Visit: Yes Status: Acute (4) History of breast cancer Current Visit: Yes Status: Acute - Plan Plan: 1. Continue with IV hydration and PPI drip 2. Continue with IV antibiotics 3. Continue with pain control 4. NPO 5. Surgery consultation 6. Serial H&H, and we will monitor LFTs and lipase along with electrolytes. 7. GI and DVT prophylaxis 8. surgery is following Discharge Plan: Home Plan to discharge in: Greater than 2 days - Advance Directives Does patient have a Living Will: No Does patient have a Durable POA for Healthcare: No - Code Status/Comfort Care Code Status Assessed: Yes Code Status: Full Code Critical Care: yes Time Spent Managing PTS Care (In Minutes): 55
[2023-10-31] MEDS: PANTOPRAZOLE INJ 80 MG in NA CHLORIDE 0.9% 250 ML IV SCH (06:18)
[2023-10-31] MEDS ORDERED: NA CHLORIDE 0.9% 250 ML IV SCH (08:00)
[2023-10-31] MEDS ORDERED: SODIUM CHLORIDE 0.9% 10ML INJ IV SCH (09:00)
[2023-10-31] MEDS: NA CHLORIDE 0.9% 500 ML IV ONE (11:15)
[2023-10-31] MEDS: NA CHLORIDE 0.9% 1,000 ML ONE (11:44)
[2023-10-31] MEDS: D5 0.9 NS 1,000 ML IV SCH (12:36)
[2023-10-31] MEDS ORDERED: EPINEPHRINE 1 MG/ML VIAL ONE ×2 (13:17→13:18)
[2023-10-31] MEDS: Ringers Lactate 1,000 ML IV ONE (13:42)
[2023-10-31] MEDS ORDERED: propofoL 200 MG/20 ML VIAL IV ONE (14:02)
[2023-10-31] MEDS ORDERED: LIDOCAINE 1% MPF 5 ML VIAL ONE (14:02)
[2023-10-31] MEDS ORDERED: EPHEDRINE SULF 50 MG/ML VIAL ONE (14:16)
[2023-10-31] MEDS ORDERED: Phenylephrine HCl 10 MG/ML 1 ML VIAL ONE ×2 (14:19)
[2023-10-31] MEDS: HYDROCODONE/APAP 7.5/325 MG TAB PO ONE (15:24)
[2023-10-31 15:28] LABS: Hematocrit 25.5 % (36.0-45.0); Hemoglobin 8.5 g/dL (12.0-15.0)
--- NOTE | 2023-10-31 15:44 | EKG ---
Test Date: 2023-10-30 Test Time: 11:03:48 Binding End Stitcher: Amanda RED MEASUREMENT RESULTS: Intervals: Rate: 74 ND: 166 QRSD: 84 QT: 388 QTc: 430 [place]: P: 70 ND: 166 QRS: 78 T: 70 INTERPRETIVE STATEMENTS: Normal sinus rhythm Normal ECG No previous ECG available for comparison Electronically Signed On 10-31-23 15:39:05 CDT by Manan Mccabe
[2023-10-31] MEDS: NA CHLORIDE 0.9% 250 ML ONE (17:16)
[2023-11-01] MEDS: MORPHINE 2 MG/ML SYR IV PRN (01:37)
[2023-11-01 05:37] LABS: Absolute Eosinophils 0.2 K/uL (0-0.5); Absolute Lymphocytes (CBC) 0.6 K/uL (0.7-4.9); Absolute Monocytes 0.6 K/uL (0.1-1.3); Absolute Neutrophil 2.3 K/uL (1.8-8.0); Basophils % 0.8 % (0-1.3); Eosinophils % 5.4 % (0-4.4); Hematocrit 27.3 % (36.0-45.0); Hemoglobin 9.2 g/dL (12.0-15.0); Lymphocytes % 15.2 % (15.3-44.8); MCHC 33.7 g/dL (32.0-36.0); MCV 91.9 fL (80-100); MPV 8.1 fL (7.6-11.3); Monocytes % 15.5 % (3.3-12.3); Neutrophils % 63.1 % (41.7-73.7); Nucleated Red Blood Cells % 0.1 % (0-0); Platelets 186 thou/uL (152-406); RBC Red Blood Cell Count 2.97 M/uL (3.86-4.86); Red Cell Distribution Width 14.7 % (12.1-15.2)
[2023-11-01 06:03] LABS: Anion Gap 11.3 mEq/L (5.0-15.0); Potassium 3.3 mEq/L (3.5-5.1)
[2023-11-01 06:21] LABS: Troponin High Sensitivity 60.3 pg/mL (<58.9)
[2023-11-01] MEDS: KCL 20 MEQ/100 mL IVPB 20 MEQ/100 ML BAG IV SCH ×2 (09:03→14:56)
[2023-11-01 10:48] LABS: Hematocrit 27.6 % (36.0-45.0)
[2023-11-01 17:09] LABS: Hematocrit 30.9 % (36.0-45.0); Hemoglobin 10.1 g/dL (12.0-15.0)
[2023-11-01 23:47] LABS: Hematocrit 29.1 % (36.0-45.0); Hemoglobin 9.6 g/dL (12.0-15.0)
[2023-11-02 00:41] VITALS: TEMP 97
[2023-11-02 04:12] VITALS: O2SAT 100
[2023-11-02 06:13] VITALS: BP 96/67
[2023-11-02 06:30] LABS: Hematocrit 28.3 % (36.0-45.0); Hemoglobin 9.5 g/dL (12.0-15.0)
== END 2023-11-02 06:30 | disposition short-term general hospital (02) | DRG 378 ==
LOC: ER 10:05 → ERHOLD 14:12 → 2ND 17:47 → 3RD-ICU 10-31 15:28
PROVIDERS: ADMIT Hospitalist; ATTEND Hospitalist
DX: K92.2 Gastrointestinal hemorrhage, unspecified (principal); D62 Acute posthemorrhagic anemia; I10 Essential (primary) hypertension; I48.91 Unspecified atrial fibrillation; E11.9 Type 2 diabetes mellitus without complications; E66.9 Obesity, unspecified; R79.89 Other specified abnormal findings of blood chemistry; Z88.0 Allergy status to penicillin; Z85.3 Personal history of malignant neoplasm of breast; Z68.34 Body mass index [BMI] 34.0-34.9, adult; Z79.84 Long term (current) use of oral hypoglycemic drugs; Z90.10 Acquired absence of unspecified breast and nipple; Z79.899 Other long term (current) drug therapy; Z87.891 Personal history of nicotine dependence
CPT/HCPCS: 36415; 71045; 74177; 80048; 80076; 81001; 82607; 82947; 83540; 83690; 83735; 83880; 84484; 85014; 85018; 85025; 85044; 85610; 85730; 86850; 86900; 86901; 86920; 93005; 96374; 96375; 99285; A4216; J0171; J0744; J2001; J2270; J2371; J2470; J2704; J3480; J7030; J7042; J7050; J7120; J7799; P9016; Q9967

== ENCOUNTER 2024-02-24 06:45 | Day surgery (SDC) | payer OTHER ==
[2024-02-19 10:03] LABS: Absolute Eosinophils 0.3 K/uL (0-0.5); Absolute Lymphocytes (CBC) 0.8 K/uL (0.7-4.9); Absolute Monocytes 0.4 K/uL (0.1-1.3); Absolute Neutrophil 2.5 K/uL (1.8-8.0); Basophils % 0.9 % (0-1.3); Eosinophils % 6.5 % (0-4.4); Hematocrit 37.4 % (36.0-45.0); Lymphocytes % 20.5 % (15.3-44.8); MCH 29.1 pg (27.0-35.0); MCV 90.9 fL (80-100); MPV 8.2 fL (7.6-11.3); Monocytes % 9.9 % (3.3-12.3); Neutrophils % 62.2 % (41.7-73.7); Nucleated Red Blood Cells % 0.1 % (0-0); Platelets 269 thou/uL (152-406); RBC Red Blood Cell Count 4.12 M/uL (3.86-4.86)
[2024-02-19 10:15] LABS: Anion Gap 9.7 mEq/L (5.0-15.0); PT Prothrombin Time 12.1 SECONDS (9.4-12.5); PTT, Activated Partial Thromb 31.1 SECONDS (24.3-36.9); Potassium 4.7 mEq/L (3.5-5.1); Protime INR 1.08
--- NOTE | 2024-02-23 10:57 | EKG ---
Test Date: 2024-02-19 Test Time: 10:37:22 Steam Table Attendant: WESLEY MEASUREMENT RESULTS: Intervals: Rate: 75 NM: 190 QRSD: 82 QT: 406 QTc: 453 [place]: P: 78 NM: 190 QRS: 80 T: 81 INTERPRETIVE STATEMENTS: Normal sinus rhythm Normal ECG Compared to ECG 10/30/2023 11:03:48 No significant changes Electronically Signed On 02-23-24 10:51:47 LOTTERY MANAGER by Nirav Emery
[2024-02-24] MEDS ORDERED: NA CHLORIDE 0.9% 500 ML ONE ×2 (06:52→08:07)
[2024-02-24] MEDS ORDERED: NITROGLYCERIN/D5W 50 MG/250 ML BTL IV ONE (06:59)
[2024-02-24] MEDS ORDERED: HEPA 1000U/500MLS 2,000 UNIT/1,000 ML BAG IV ONE (06:59)
[2024-02-24] MEDS ORDERED: HEPARIN 10,000 UNIT/10 ML VIAL IV ONE (06:59)
[2024-02-24] MEDS ORDERED: MIDAZOLAM HCL 2 MG/2 ML INJ ONE (07:00)
[2024-02-24] MEDS ORDERED: ATROPINE SULF 1 MG/10 ML SYR IV ONE (07:00)
[2024-02-24] MEDS ORDERED: HEPARIN 5000 UNIT/ML 1 ML VIAL ONE (07:01)
[2024-02-24] MEDS ORDERED: FENTANYL CITR 100 MCG/2 ML ONE (07:01)
[2024-02-24] MEDS ORDERED: TICAGRELOR 90 MG TABLET PO ONE (07:01)
[2024-02-24] MEDS ORDERED: ASPIRIN 325 MG TAB ONE (07:01)
[2024-02-24] MEDS ORDERED: CLOPIDOGREL 75 MG TABLET ONE ×2 (07:01→09:08)
[2024-02-24] MEDS ORDERED: LIDOCAINE 1% 20 ML MDV ONE (07:26)
--- NOTE | 2024-02-25 20:58 | OP ---
Date of Procedure: 02/24/2024 Surgeon: Nirav Emery Procedures Performed: 1.Selective coronary angiogram. 2.PCI of the LAD with Synergy 3.0 x 38 mm drug-eluting stent. Indication For Procedure: Unstable angina. Abnormal stress test. Complications: None. Estimated Blood Loss: Less than 50 cc. Access: Right radial, closed by TR band. Sedation Time: 30 minutes with 1 of Versed and 25 of fentanyl. Description Of Procedure: After risks, and benefits, and alternatives were explained to the patient, patient agreed to proceed with procedure and signed informed consent. The patient was brought back to the [facility]ving tester laboratory, prepped and draped in a sterile fashion. Time-out was performed. Sedation was admi nistered. Next, the right radial access was obtained using an ultrasound-guided micropuncture techni que. Melrose 4.0 catheter was advanced over a J-wire to the aortic root. Selective angiogram was done using this catheter and that catheter was later exchanged for an XB LAD 3.5 mm guide. Heparin was a dministered. ACT was therapeutic. Runthrough wire was passed across the lesion. We pre-dilated the lesions with an NC 2.5 mm balloon followed by an NC 3.0 mm balloon. Next, Synergy 3.0 x 38 mm drug- eluting stent was placed across the lesion that is postdilated with an NC 3.5 mm balloon. Repeat ang iogram shows PENNY-3 flow. Wire was removed. Catheter was removed over a J-wire. Sheath was removed . TR band was applied. Hemostasis was achieved and the patient was moved back to Recovery in stable condition. Findings: 1.Left main with ostial 30% to 40% disease. 2.LAD; proximal to mid calcified with 80% to 95% disease, status post PCI as above, mid to distal mi ld luminal irregularities. 3.Left circ; mild luminal irregularities. 4.RCA; mid TWISTER FRAME TENDER which gets btmp-on-zifee collaterals from the LAD into RPDA and distal RCA. Assessment And Plan: 1.Significant proximal to mid calcified LAD disease, status post PCI with Synergy 3.0 x 38 mm drug-e luting stent. 2.RCA TWISTER FRAME TENDER, gets left to right collaterals, not amenable for PCI. Plan: 1.Aspirin 81 mg daily for life. 2.Plavix 75 mg daily for 12 months. 3.Continue aggressive medical treatment for CAD. SIERRA/MODL Voice ID: [id number] Report ID: [id number]
[2024-02-27 01:06] VITALS: BP 143/79; O2SAT 100
== END 2024-02-24 11:15 | disposition home or self-care (01) ==
LOC: CCL 06:45
PROVIDERS: ATTEND Internal Medicine Interventional Cardiology
DX: I25.110 Atherosclerotic heart disease of native coronary artery with unstable angina pectoris (principal); I25.82 Chronic total occlusion of coronary artery; I10 Essential (primary) hypertension; E78.2 Mixed hyperlipidemia; Z87.891 Personal history of nicotine dependence; Z88.0 Allergy status to penicillin; Z85.3 Personal history of malignant neoplasm of breast; Z90.10 Acquired absence of unspecified breast and nipple; Z79.899 Other long term (current) drug therapy; Z82.49 Family history of ischemic heart disease and other diseases of the circulatory system
CPT/HCPCS: 93005; 85025; 80048; 36415; 85610; 85347 ×2; 85730; 93454; 76937; C1893; Q9967; C1725; C1877; C9600; J1644; J2003; J2250; J3010; J7040 ×2; 92928; 99152; 99153; J0461

== ENCOUNTER 2024-03-31 16:52 | Inpatient (IN) | payer OTHER ==
[2024-03-31 17:52] LABS: Absolute Basophils 0.1 K/uL (0-0.5); Absolute Eosinophils 0.2 K/uL (0-0.5); Absolute Lymphocytes (CBC) 0.5 K/uL (0.7-4.9); Absolute Monocytes 1.1 K/uL (0.1-1.3); Absolute Neutrophil 9.8 K/uL (1.8-8.0); Basophils % 0.6 % (0-1.3); Eosinophils % 1.8 % (0-4.4); Hematocrit 23.9 % (36.0-45.0); Hemoglobin 7.9 g/dL (12.0-15.0); Lymphocytes % 4.1 % (15.3-44.8); MCH 28.6 pg (27.0-35.0); MCV 86.8 fL (80-100); MPV 8.5 fL (7.6-11.3); Monocytes % 9.1 % (3.3-12.3); Neutrophils % 84.4 % (41.7-73.7); Platelets 326 thou/uL (152-406); RBC Red Blood Cell Count 2.76 M/uL (3.86-4.86); Red Cell Distribution Width 15.5 % (12.1-15.2)
[2024-03-31 17:58] LABS: Protime INR 1.34
[2024-03-31 18:10] LABS: ALT/SGPT 27 U/L (13-56); AST/SGOT 27 U/L (15-37); Albumin 2.5 g/dL (3.4-5.0); Albumin/Globulin Ratio 0.5 (1.1-1.8); Alkaline Phosphatase 123 U/L (45-117); Anion Gap 9.8 mEq/L (5.0-15.0); BUN Blood Urea Nitrogen 32 mg/dL (7-18); Bicarbonate 22 mEq/L (21-32); Bilirubin Total 0.4 mg/dL (0.2-1.0); Globulin 5.5 g/dL (2.3-3.5); Glomerular Filtration Rate 70 ml/min (=/>90); Glucose Level 103 mg/dL (74-106); Magnesium 2.5 mg/dL (1.6-2.4); NT PRO-BNP 1127 pg/mL (<125); Potassium 3.8 mEq/L (3.5-5.1); Sodium Level 135 mEq/L (136-145)
[2024-03-31 18:11] LABS: Bilirubin Direct < 0.2 mg/dL (0-0.2); Bilirubin Indirect, Calculated 0.2 mg/dL (0.2-0.8)
[2024-03-31 18:12] LABS: Troponin High Sensitivity 107.1 pg/mL (<58.9)
[2024-03-31] MEDS ORDERED: ASPIRIN EC 81 MG TAB PO ONE (18:49)
--- NOTE | 2024-03-31 19:01 | RAD REPORT ---
EXAMINATION: CTA CHEST PE CLINICAL INDICATION: CHEST PAIN TECHNIQUE: This examination was performed according to an angiographic protocol with 3D post-processi ng. This involves 3D reconstructions, MIPs, volume rendered images and/or shaded surface rendering. One or more of the following dose reduction techniques were used: Automated exposure control, adjustm ent of the mA and/or kV according to patient size, and/or iterative reconstruction. Unless otherwise specified, incidental findings do not require dedicated imaging follow-up. COMPARISON: 07/04/2023 FINDINGS: PULMONARY ARTERIES: Normal caliber. No evidence of pulmonary emboli to the subsegmental level. THORACIC AORTA: Normal caliber and configuration. LUNGS: Linear and reticular nodular opacity seen in left upper lobe anteriorly. PLEURA: No pleural effusion. No pneumothorax. MEDIASTINUM AND LYMPH NODES: No mediastinal mass or fluid collection. Normal size mediastinal, hilar, and axillary lymph nodes. The esophagus appears mildly fluid filled. OSSEOUS STRUCTURES AND CHEST WALL: Intact. UPPER ABDOMEN: No significant abnormalities. IMPRESSION: No evidence of pulmonary emboli to the subsegmental level. Linear and reticular opacities in the left upper lobe could be infectious or related to scaring.
--- NOTE | 2024-03-31 19:11 | EDPHYS ---
Physician Documentation [facility] Name: Romelia Billings Age: 73 yrs Sex: Female : 1950 Arrival Date: 03/31/2024 Time: 16:52 Bed 17 Private MD: ED Physician Esperanza Carl HPI: 03/31 17:26 This 73 yrs old Black Female presents to ER via EMS with complaints of Chest Pain. sp3 17:26 73-year-old female with history of diabetes, hypertension, prior breast cancer status sp3 postmastectomy bilaterally and early 2023 now presents to the ED with chief complaint left chest pain. Patient has had issues with scarring on the left breast site. Patient also states she has had coronary artery disease with stent placement. This feels more like the tissue outside of the chest than internal however patient is not fully sure and wants to be evaluated. She denies any headache, fever, neck pain, back pain, shortness of breath, abdominal pain, nausea, vomiting, diarrhea, syncope, near syncope, prolonged immobilization, or any other signs or symptoms on ROS at this time.. Historical: - Allergies: 17:00 PENICILLINS; bp - PMHx: 17:00 breast cancer; diabetes mellitus; Hypertensive disorder; bp - PSHx: 17:00 hernia repair; Lumpectomy of breast; bp - Immunization history:: Adult Immunizations up to date. - Infectious Disease History:: Denies. - Social history:: Smoking status: Patient denies any tobacco usage or history of. ROS: 17:28 Constitutional: Negative for fever, chills, and weight loss, Eyes: Negative for injury, sp3 pain, redness, and discharge, ENT: Negative for injury, pain, and discharge, Neck: Negative for injury, pain, and swelling, Respiratory: Negative for shortness of breath, cough, wheezing, and pleuritic chest pain, Abdomen/GI: Negative for abdominal pain, nausea, vomiting, diarrhea, and constipation, Back: Negative for injury and pain, MS/Extremity: Negative for injury and deformity, Skin: Negative for injury, rash, and discoloration, Neuro: Negative for headache, weakness, numbness, tingling, and seizure, Psych: Negative for depression, anxiety, suicide ideation, homicidal ideation, and hallucinations, Allergy/Immunology: Negative for hives, rash, and allergies, Endocrine: Negative for neck swelling, polydipsia, polyuria, polyphagia, and marked weight changes, Hematologic/Lymphatic: Negative for swollen nodes, abnormal bleeding, and unusual bruising, 17:28 All other systems are negative, Exam: 17:28 Constitutional: This is a well developed, well nourished patient who is awake, alert, sp3 and in no acute distress. Head/Face: Normocephalic, atraumatic. Eyes: Pupils equal round and reactive to light, extra-ocular motions intact. Lids and lashes normal. Conjunctiva and sclera are non-icteric and not injected. Cornea within normal limits. Periorbital areas with no swelling, redness, or edema. ENT: Nares patent. No nasal discharge, no septal abnormalities noted. External auditory canals are clear. Oropharynx with no redness, swelling, or masses, exudates, or evidence of obstruction, uvula midline. Mucous membranes moist. Neck: Trachea midline, no thyromegaly or masses palpated, and no cervical lymphadenopathy. Supple, full range of motion without nuchal rigidity, or vertebral point tenderness. No Meningismus. Cardiovascular: Regular rate and rhythm with a normal S1 and S2. No gallops, murmurs, or rubs. Normal PMI, no JVD. No pulse deficits. Respiratory: Lungs have equal breath sounds bilaterally, clear to auscultation and percussion. No rales, rhonchi or wheezes noted. No increased work of breathing, no retractions or nasal flaring. Abdomen/GI: Soft, non-tender, with normal bowel sounds. No distension or tympany. No guarding or rebound. No evidence of tenderness throughout. Back: No spinal tenderness. No costovertebral tenderness. Full range of motion. Skin: Warm, dry with normal turgor. Normal color with no rashes, no lesions, and no evidence of cellulitis. MS/ Extremity: Pulses equal, no cyanosis. Neurovascular intact. Full, normal range of motion. Neuro: Awake and alert, GCS 15, oriented to person, place, time, and situation. Cranial nerves II-XII grossly intact. Motor strength 5/5 in all extremities. Sensory grossly intact. Cerebellar exam normal. Normal gait. Psych: Awake, alert, with orientation to person, place and time. Behavior, mood, and affect are within normal limits. 17:28 Chest/axilla: Patient with pain on the left chest to palpation mild in nature.. 18:20 ECG was reviewed by the Attending Physician. EKG demonstrates normal sinus rhythm at 91 sp3 bpm with normal and was, high voltage in the precordial leads and nonspecific diffuse ST/T changes without evidence of acute ischemia. QTc noted to be 457. Vital Signs: 16:59 BP 111 / 73; Pulse 98; Resp 16; Temp 99.1; Pulse Ox 98% ; bp 19:00 BP 116 / 69; Pulse 90; Temp 98.5; Pulse Ox 100% ; ay 20:00 BP 122 / 61; Pulse 93; Resp 17; Pulse Ox 100% ; ay MDM: 16:57 Medical Screening Exam initiated sp3 17:29 Data reviewed: vital signs, nurses notes, old medical records, lab test result(s), EKG, sp3 radiologic studies. ED course: 73-year-old female with mastectomy scar, chest wall pain, and chest pain for the last week. Differential diagnosis includes musculoskeletal pain, chest wall pain, acute coronary syndrome, other chest pathology and to a lesser degree PE or other abnormality. We will differentiate by obtaining EKG, labs, CT scan of the chest with PE protocol IV contrast, and general supportive care. Vital signs are currently normal. Disposition pending workup and patient course. . 19:07 ED course: Patient will be admitted for NSTEMI. Aspirin given. Patient's pain is sp3 improved since being here. I discussed the case with Dr. Man who will be taking over on the inpatient side. Text messages sent to cardiology service.. 03/31 16:58 Order name: Basic Metabolic Panel; Complete Time: 18:20 sp3 03/31 16:58 Order name: CBC with Diff; Complete Time: 18:20 sp3 03/31 16:58 Order name: LFT's; Complete Time: 18:20 sp3 03/31 16:58 Order name: Magnesium; Complete Time: 18:20 sp3 03/31 16:58 Order name: NT PRO-BNP; Complete Time: 18:20 sp3 03/31 16:58 Order name: PT-INR; Complete Time: 18:20 sp3 03/31 16:58 Order name: Troponin HS; Complete Time: 18:20 sp3 03/31 20:22 Order name: Troponin High Sensitivity EDMS 03/31 20:37 Order name: CBC with Automated Diff EDMS 03/31 20:37 Order name: CBC with Automated Diff EDMS 03/31 20:37 Order name: Comprehensive Metabolic Panel EDMS 03/31 20:37 Order name: Comprehensive Metabolic Panel EDMS 03/31 20:37 Order name: Lipid Profile EDMS 03/31 20:37 Order name: Lipid Profile EDMS 03/31 20:37 Order name: Magnesium EDMS 03/31 20:37 Order name: Magnesium EDMS 03/31 20:37 Order name: Troponin High Sensitivity EDMS 03/31 20:37 Order name: Troponin High Sensitivity EDMS 03/31 20:37 Order name: Troponin High Sensitivity EDMS 03/31 20:37 Order name: Troponin High Sensitivity EDMS 03/31 20:37 Order name: Troponin High Sensitivity EDMS 03/31 20:40 Order name: CBC with Automated Diff EDMS 03/31 20:40 Order name: Platelet Count EDMS 03/31 20:40 Order name: PTT, Activated Partial Thromb EDMS 03/31 20:40 Order name: CBC with Automated Diff EDMS 03/31 20:40 Order name: CBC with Automated Diff EDMS 03/31 20:40 Order name: CBC with Automated Diff EDMS 03/31 20:40 Order name: CBC with Automated Diff EDMS 03/31 20:40 Order name: Platelet Count EDMS 03/31 20:40 Order name: Platelet Count EDMS 03/31 20:40 Order name: Platelet Count EDMS 03/31 20:40 Order name: Platelet Count EDMS 03/31 20:40 Order name: Platelet Count EDMS 03/31 20:40 Order name: Platelet Count EDMS 03/31 20:40 Order name: Platelet Count EDMS 03/31 20:40 Order name: Platelet Count EDMS 03/31 20:40 Order name: PTT, Activated Partial Thromb EDMS 03/31 20:40 Order name: PTT, Activated Partial Thromb EDMS 03/31 20:40 Order name: PTT, Activated Partial Thromb EDMS 03/31 20:40 Order name: PTT, Activated Partial Thromb EDMS 03/31 20:40 Order name: PTT, Activated Partial Thromb EDMS 04/01 04:04 Order name: Glucose, Ancillary Testing EDMS 03/31 16:58 Order name: CT Chest For PE Angio; Complete Time: :05 sp3 03/31 20:37 Order name: Echo with Doppler EDAR 03/31 20:37 Order name: CONS Physician Consult EDAR 03/31 16:58 Order name: Cardiac monitoring; Complete Time: 17:08 sp3 03/31 16:58 Order name: EKG - Nurse/Tech; Complete Time: 18:30 sp3 03/31 16:58 Order name: IV Saline Lock; Complete Time: 17:43 sp3 03/31 16:58 Order name: Labs collected and sent; Complete Time: 17:43 sp3 03/31 16:58 Order name: O2 Per Protocol; Complete Time: 17:08 sp3 03/31 16:58 Order name: O2 Sat Monitoring; Complete Time: 17:08 sp3 Administered Medications: 19:06 Drug: Aspirin PO 325 mg PO once Route: PO; bp 04/01 04:38 Follow up: Response: No adverse reaction ay Disposition Summary: 03/31/24 19:11 Hospitalization Ordered Notes: Hospitalization Status: Inpatient Admission sp3 Provider: Marcos Man sp3 Condition: Stable sp3 Problem: an acute exacerbation sp3 Symptoms: have worsened sp3 Bed/Room Type: Standard sp3 Location: Telemetry/MedSurg (Inpatient)(04/01/24 05:41) Room Assignment: 206(04/01/24 07:14) bc6 Diagnosis - Chest pain, NSTEMI sp3 Forms: - Medication Reconciliation Form sp3 - SBAR form sp3 - Leadership Thank You Letter sp3 Signatures: Dispatcher [employer] EDMS Margarita Moreira RN RN kl Peltier, Brian, RN RN Esperanza Peterson MD MD sp3 Blanka Encarnacion RN RN vc1 Erica Lomas bc6 Paul Clifton RN ay Corrections: (The following items were deleted from the chart) 03/31 16:58 16:58 BASIC METABOLIC PANEL+C.LAB.BRZ ordered. EDMS EDMS 16:58 16:58 CBC+H.LAB.BRZ ordered. EDMS EDMS 16:58 16:58 HEPATIC FUNCTION+C.LAB.BRZ ordered. EDMS EDMS 16:58 16:58 MAGNESIUM+C.LAB.BRZ ordered. EDMS EDMS 16:58 16:58 PROBNP+C.LAB.BRZ ordered. EDMS EDMS 16:58 16:58 PROTIME (+INR)+COAG.LAB.BRZ ordered. EDMS EDMS 16:58 16:58 Troponin High Sensitivity+C.LAB.BRZ ordered. EDMS EDMS 16:58 16:58 Chest For PE Angio+CT.RAD.BRZ ordered. EDMS EDMS 21:56 19:11 Telemetry/MedSurg (Inpatient) sp3 vc1 21:56 19:11 sp3 vc1 04/01 05:41 02 21:56 [facility] ER HOLD vc1 kl 04/01 05:41 02 21:56 ERHOLD- vc1 kl 04/01 07:14 05:41 220 kl bc6
--- NOTE | 2024-03-31 19:11 | ER ---
Nurse's Notes [facility] Name: Romelia Billings Age: 73 yrs Sex: Female : 1950 Arrival Date: 03/31/2024 Time: 16:52 Bed 17 Private MD: Diagnosis: Chest pain, NSTEMI Presentation: 03/31 16:59 Chief complaint: EMS states: CHEST PAIN x1 WK, NOW RESOLVED. Coronavirus screen: At bp this time, the client does not indicate any symptoms associated with coronavirus-19. Ebola Screen: No symptoms or risks identified at this time. Initial Sepsis Screen: Does the patient meet any 2 criteria? No. Patient's initial sepsis screen is negative. Does the patient have a suspected source of infection? No. Patient's initial sepsis screen is negative. Risk Assessment: Do you want to hurt yourself or someone else? Patient reports no desire to harm self or others. Onset of symptoms is unknown. 16:59 Method Of Arrival: EMS[facility] bp 16:59 Acuity: FORTINO 3 bp Triage Assessment: 17:00 General: Appears in no apparent distress. Behavior is calm, cooperative, appropriate bp for age. Pain: Denies pain. EENT: No deficits noted. Neuro: No deficits noted. Cardiovascular: Rhythm is sinus rhythm. Respiratory: No deficits noted. GI: No signs and/or symptoms were reported involving the gastrointestinal system. : No signs and/or symptoms were reported regarding the genitourinary system. Derm: No deficits noted. Musculoskeletal: No deficits noted. Historical: - Allergies: 17:00 PENICILLINS; bp - PMHx: 17:00 breast cancer; diabetes mellitus; Hypertensive disorder; bp - PSHx: 17:00 hernia repair; Lumpectomy of breast; bp - Immunization history:: Adult Immunizations up to date. - Infectious Disease History:: Denies. - Social history:: Smoking status: Patient denies any tobacco usage or history of. Screenin:00 [facility] ED Fall Risk Assessment (Adult) History of falling in the last 3 months, bp including since admission No falls in past 3 months (0 pts) Confusion or Disorientation No (0 pts) Intoxicated or Sedated No (0 pts) Impaired Gait No (0 pts) Mobility Assist Device Used No (0 pt) Altered Elimination No (0 pt) Score/Fall Risk Level 0 - 2 = Low Risk Oriented to surroundings, Maintained a safe environment. Abuse screen: Denies threats or abuse. Denies injuries from another. Nutritional screening: No deficits noted. Tuberculosis screening: No symptoms or risk factors identified. Assessment: 17:00 General: Appears in no apparent distress. uncomfortable, Behavior is calm, cooperative, bp appropriate for age. Pain: Complains of pain in left breast. Neuro: No deficits noted. Cardiovascular: Rhythm is sinus rhythm. Respiratory: No deficits noted. GI: No signs and/or symptoms were reported involving the gastrointestinal system. : No signs and/or symptoms were reported regarding the genitourinary system. EENT: No deficits noted. Derm: No deficits noted. Vital Signs: 16:59 BP 111 / 73; Pulse 98; Resp 16; Temp 99.1; Pulse Ox 98% ; bp 19:00 BP 116 / 69; Pulse 90; Temp 98.5; Pulse Ox 100% ; ay 20:00 BP 122 / 61; Pulse 93; Resp 17; Pulse Ox 100% ; ay ED Course: 16:57 Patient arrived in ED. sp3 16:57 Esperanza Carl MD is Attending Physician. sp3 16:57 Sony Easton, DASHA is Primary Nurse. bp 17:00 Triage completed. bp 17:00 Arm band placed on. bp 17:00 Patient has correct armband on for positive identification. bp 17:25 Radiology exam delayed due to IV insertion attempt and/or patient not having jc4 appropriate IV at this time. 17:43 Accessed peripheral vein via ultrasound, utilizing dynamic ultrasound technique using bp 20G Nexia IV catheter ,sterile technique, per hospital protocol. Clean \T\ dry. Dressing intact. Good blood return. Flushes easily. 18:55 CT Chest For PE Angio In Process Unspecified. EDMS 19:10 Marcos Man MD is Hospitalizing Provider. sp3 Administered Medications: 19:06 Drug: Aspirin PO 325 mg PO once Route: PO; bp 04/01 04:38 Follow up: Response: No adverse reaction ay Medication: 03/31 17:00 VIS not applicable for this client. bp Outcome: 19:11 Decision to Hospitalize by Provider. sp3 04/01 08:12 Patient left the ED. kc6 Signatures: Dispatcher [employer] EDMS Sony Easton, RN RN bp Esperanza Carl MD MD sp3 Sully Kahn, RN RN kc6 Fredy Stark jc4 Paul Clifton, RN RN ay
[2024-03-31] MEDS: ASPIRIN EC 81 MG TAB PO SCH (20:00)
--- NOTE | 2024-03-31 20:25 | P.HP ---
Certification for Inpatient Patient admitted to: Inpatient With expected LOS: >2 Midnights Practitioner: I am a practitioner with admitting privileges, knowledge of patient current condition, hospital course, and medical plan of care. Services: Services provided to patient in accordance with Admission requirements found in Title 42 Section 412.3 of the Code of Federal Regulations Patient History Date of Service: 03/31/24 Reason for admission: chest pain History of Present Illness: Chest pain 73-year-old female with history of breast cancer, mastectomy, diabetes, hypertension, history of stent with coronary artery disease presents to the ER with complaints of left-sided chest pain. She reports symptoms ongoing for several weeks. Most recently she has had lower blood pressure and dizziness. She has been prescribed Lasix recently. She came to the ER because she was feeling dizzy. She reports having a cough. Previously has received radiation therapy for her breast cancer. In the emergency room she had a contrast CT of her chest. She was noted to have a mildly elevated troponin. An EKG was done. she was admitted to the hospital 11/03 for lower GI bleed Allergies Penicillins Allergy (Verified 02/19/24 09:16) unknown Home Medications: Acetaminophen [Tylenol Arthritis] 650 mg PO Q8HP 10/30/23 Anastrozole [Arimidex] 1 mg PO DAILY 10/30/23 Atorvastatin Calcium [Lipitor] 40 mg PO BEDTIME 10/30/23 Butalb/Acetaminophen/Caffeine [Ghvbpr-Rdinskql-Qrfw 50-325-40] 1 each PO QIDP PRN 10/30/23 Chlorthalidone [Hygroton 25mg Tab] 25 mg PO DAILY 10/30/23 Hydrocodone 5/APAP 325 [Muir 5/325] 1 tab PO BIDP PRN 10/30/23 Meclizine HCl 25 mg PO BIDP PRN 10/30/23 Meloxicam [Mobic] 15 mg PO DAILYPRN PRN 10/30/23 Metformin HCl [Glucophage] 500 mg PO DAILY WITH BREAKFAST 10/30/23 Metoprolol Succinate [Toprol Xl] 50 mg PO DAILY 10/30/23 Multivit-Min/Iron/Folic/Lutein [Centrum Silver Women Tablet] 1 each PO DAILY 10/30/23 Topiramate [Topamax] 50 mg PO BIDP PRN 10/30/23 Vitamin D3/Vitamin K2 (Mk4) [K2 Plus D3 Tablet] 1 each PO DAILY 10/30/23 Zinc Amino Acid Chelate [Zinc] 50 mg PO DAILY 10/30/23 Zolpidem Tartrate [Ambien] 10 mg PO BEDTIME PRN PRN 10/30/23 - Past Medical/Surgical History Diabetic: No -: Hypertension -: Breast cancer -: Atrial fibrillation -: OA WILBERT Knees -: Masectomy w/ Rad Rx -: Hernia Repair x4 -: Tubal Ligation - Family History Mother -: Heart disease Sister -: Cancer Notes: 2 sisters with stomach cancer Brother -: Cancer Notes: Stomach cancer. Lung cancer - Social History Alcohol use: No CD- Drugs: No Caffeine use: Yes Review of Systems 10-point ROS is otherwise unremarkable Respiratory: Cough, Shortness of Breath Cardiovascular: Chest Pain Physical Examination - Physical Exam General: Alert, Oriented x3 HEENT: Atraumatic, Normocephalic Respiratory: Clear to auscultation bilaterally, Normal air movement Cardiovascular: No edema, Regular rate/rhythm, Normal S1 S2 Gastrointestinal: Soft and benign, Non-distended Integumentary: No rashes Neurological: Normal speech - Studies Laboratory Data (last 24 hrs) 03/31/24 03/31/24 03/31/24 17:42 17:42 17:42 WBC 11.60 H Hgb 7.9 L Hct 23.9 L Plt Count 326 PT 14.0 H INR 1.34 Sodium 135 L Potassium 3.8 BUN 32 H Creatinine 0.88 Glucose 103 Magnesium 2.5 H Total Bilirubin 0.4 AST 27 ALT 27 Alkaline Phosphatase 123 H Assessment and Plan - Problems (Diagnosis) (1) Anemia Current Visit: Yes Status: Acute (2) Dizziness Current Visit: Yes Status: Acute (3) Elevated troponin Current Visit: No Status: Acute (4) History of breast cancer Current Visit: No Status: Acute - Plan Chest pain 73-year-old female with history of breast cancer, mastectomy, diabetes, hypertension, history of stent with coronary artery disease presents to the ER with complaints of left-sided chest pain. S #left sided chest pain #CAD #history of stent #elevated troponin --repeat troponin --check echo --FLP, AIC --cardiology consult, NPO after midnight --asa, statin, prn morphine, nitro #dizziness #HTN --reports feeling dizzy after starting diuretic --hold, gently hydrate --telemetry #microcytic anemia #history of GI bleed --monitor closely --place on PPI --transfuse for hgb < 7 #history of breast cancer --off treatment - Advance Directives Does patient have a Living Will: No Does patient have a Durable POA for Healthcare: No
[2024-03-31] MEDS ORDERED: NITROGLYCERIN 0.4 MG/TAB SL PRN (20:31)
[2024-03-31] MEDS ORDERED: HEPARIN/D5W 25,000 UNIT/500 ML BAG IV PRN (20:36)
[2024-03-31] MEDS: NA CHLORIDE 0.9% 1,000 ML IV SCH (21:00)
[2024-03-31] MEDS: CEFTRIAXONE 1,000 MG in NA CHLORIDE 0.9% 50 ML IVPB SCH (23:00)
[2024-04-01] MEDS ORDERED: ASPIRIN 81 MG CHEWABLE TABLET ONE (00:41)
[2024-04-01] MEDS ORDERED: CEFTRIAXONE 1000 MG/VIAL ONE (00:41)
[2024-04-01] MEDS ORDERED: NA CHLORIDE 0.9% 1,000 ML ONE (00:42)
[2024-04-01] MEDS ORDERED: ACETAMINOPHEN 500 MG TAB ONE (00:42)
[2024-04-01] MEDS ORDERED: NA CHLORIDE 0.9% 50 ML ONE (01:09)
[2024-04-01 01:20] LABS: Absolute Eosinophils 0.2 K/uL (0-0.5); Absolute Lymphocytes (CBC) 0.6 K/uL (0.7-4.9); Absolute Monocytes 1.3 K/uL (0.1-1.3); Absolute Neutrophil 7.7 K/uL (1.8-8.0); Basophils % 0.3 % (0-1.3); Eosinophils % 2.2 % (0-4.4); Hematocrit 28.5 % (36.0-45.0); Hemoglobin 9.5 g/dL (12.0-15.0); Lymphocytes % 6.5 % (15.3-44.8); MCHC 33.4 g/dL (32.0-36.0); MCV 86.9 fL (80-100); MPV 8.2 fL (7.6-11.3); Platelets 309 thou/uL (152-406); RBC Red Blood Cell Count 3.27 M/uL (3.86-4.86); Red Cell Distribution Width 15.6 % (12.1-15.2)
[2024-04-01 01:34] LABS: Troponin High Sensitivity 91.4 pg/mL (<58.9)
[2024-04-01 02:59] VITALS: BMI 34.7
[2024-04-01 04:49] LABS: Absolute Eosinophils 0.2 K/uL (0-0.5); Absolute Lymphocytes (CBC) 0.7 K/uL (0.7-4.9); Basophils % 0.5 % (0-1.3); Eosinophils % 2.8 % (0-4.4); Hematocrit 28.1 % (36.0-45.0); Hemoglobin 9.3 g/dL (12.0-15.0); Lymphocytes % 7.6 % (15.3-44.8); MCH 28.7 pg (27.0-35.0); MCV 87.1 fL (80-100); MPV 8.2 fL (7.6-11.3); Monocytes % 11.4 % (3.3-12.3); Neutrophils % 77.7 % (41.7-73.7); Nucleated Red Blood Cells % 0.1 % (0-0); Platelets 320 thou/uL (152-406); RBC Red Blood Cell Count 3.23 M/uL (3.86-4.86); Red Cell Distribution Width 15.5 % (12.1-15.2)
[2024-04-01 05:13] LABS: Albumin 2.2 g/dL (3.4-5.0); Albumin/Globulin Ratio 0.4 (1.1-1.8); Anion Gap 11.3 mEq/L (5.0-15.0); Bilirubin Total 0.2 mg/dL (0.2-1.0); Globulin 5.3 g/dL (2.3-3.5); Protein, Total 7.5 g/dL (6.4-8.2)
[2024-04-01 05:14] LABS: Potassium 3.3 mEq/L (3.5-5.1)
[2024-04-01 05:15] LABS: Magnesium 2.3 mg/dL (1.6-2.4); Troponin High Sensitivity 91.6 pg/mL (<58.9)
[2024-04-01] MEDS: CLOPIDOGREL 75 MG TABLET PO SCH (10:00)
--- NOTE | 2024-04-01 10:00 | P.CNS ---
Date of Consult: 04/01/24 Chief Complaint: chest pain History of Present Illness: Patient with PMH of CAD s/p recent PCI of LAD, left breast mastectomy and radiation therapy presented with chest pain, left sided, that has been going on for weeks, patient is very tender to touch in left upper breast and has an open wound there, denies any other cardiac symptoms. Allergies Penicillins Allergy (Verified 02/19/24 09:16) unknown Home medications list reviewed: Yes Home Medications: Acetaminophen [Tylenol Arthritis] 650 mg PO Q8HP 10/30/23 Anastrozole [Arimidex] 1 mg PO DAILY 10/30/23 Atorvastatin Calcium [Lipitor] 40 mg PO BEDTIME 10/30/23 Butalb/Acetaminophen/Caffeine [Knydju-Vlphnqho-Jcxw 50-325-40] 1 each PO QIDP PRN 10/30/23 Chlorthalidone [Hygroton 25mg Tab] 25 mg PO DAILY 10/30/23 Hydrocodone 5/APAP 325 [[place] 5/325] 1 tab PO BIDP PRN 10/30/23 Meclizine HCl 25 mg PO BIDP PRN 10/30/23 Meloxicam [Mobic] 15 mg PO DAILYPRN PRN 10/30/23 Metformin HCl [Glucophage] 500 mg PO DAILY WITH BREAKFAST 10/30/23 Metoprolol Succinate [Toprol Xl] 50 mg PO DAILY 10/30/23 Multivit-Min/Iron/Folic/Lutein [Centrum Silver Women Tablet] 1 each PO DAILY 10/30/23 Topiramate [Topamax] 50 mg PO BIDP PRN 10/30/23 Vitamin D3/Vitamin K2 (Mk4) [K2 Plus D3 Tablet] 1 each PO DAILY 10/30/23 Zinc Amino Acid Chelate [Zinc] 50 mg PO DAILY 10/30/23 Zolpidem Tartrate [Ambien] 10 mg PO BEDTIME PRN PRN 10/30/23 - Past Medical/Surgical History Diabetic: No -: Hypertension -: Breast cancer -: Atrial fibrillation -: OA WILBERT Knees -: Masectomy w/ Rad Rx -: Hernia Repair x4 -: Tubal Ligation - Family History Mother Medical History: Heart disease Sister Medical History: Cancer Notes: 2 sisters with stomach cancer Brother Medical History: Cancer Notes: Stomach cancer. Lung cancer - Social History Alcohol use: No CD- Drugs: No Caffeine use: No Place of Residence: Home Review of Systems 10-point ROS is otherwise unremarkable Physical Examination Temp Pulse Resp BP Pulse Ox 98.2 F 87 16 108/61 100 04/01/24 08:35 04/01/24 08:35 04/01/24 08:35 04/01/24 08:35 04/01/24 08:35 General: Alert, In no apparent distress HEENT: Atraumatic, PERRLA, Mucous membr. moist/pink, EOMI, Sclerae nonicteric Neck: Supple, 2+ carotid pulse no bruit, No LAD, Without JVD or thyroid abnormality Respiratory: Clear to auscultation bilaterally, Normal air movement Cardiovascular: Regular rate/rhythm, Normal S1 S2 Gastrointestinal: Normal bowel sounds, No tenderness Musculoskeletal: No tenderness Integumentary: No rashes Neurological: Normal gait, Normal speech, Normal tone, Normal affect Lymphatics: No axilla or inguinal lymphadenopathy Laboratory Data (last 24 hrs) 03/31/24 03/31/24 03/31/24 17:42 17:42 17:42 WBC 11.60 H Hgb 7.9 L Hct 23.9 L Plt Count 326 PT 14.0 H INR 1.34 Sodium 135 L Potassium 3.8 BUN 32 H Creatinine 0.88 Glucose 103 Magnesium 2.5 H Total Bilirubin 0.4 AST 27 ALT 27 Alkaline Phosphatase 123 H - Problems (1) Chest pain Current Visit: Yes Status: Acute Plan: patient chest pain is reporducible on exam with very sesnitive upper left chest area with an open wound, patient chest pain is non cardiac, troponin leak is mild and non concerning. need further testing of that upper chest area and maybe surgical consult for that open wound. continue ASA 81 mg daily continue Plavix 75 mg daily (2) HTN (hypertension) Current Visit: Yes Status: Acute Plan: continue patient home medications of Toprol XL and chlorothalidone.
[2024-04-01] MEDS: ACETAMINOPHEN 500 MG TAB PO PRN (17:57)
[2024-04-01] MEDS: Levofloxacin500mg IV 500 MG/100 ML BAG IV SCH (17:59)
[2024-04-01] MEDS: VANCOMYCIN 1.5 GM in NA CHLORIDE 0.9% 500 ML IVPB SCH (18:01)
[2024-04-01] MEDS ORDERED: MELATONIN 5 MG TABLET PO PRN (20:24)
[2024-04-01] MEDS: ZOLPIDEM TARTRATE 10 MG TABLET PO PRN (23:44)
[2024-04-01] MEDS: GUAIFENESIN/DM 5 ML UCUP PO PRN (23:44)
[2024-04-02 05:19] LABS: MPV 8.3 fL (7.6-11.3); Platelets 287 thou/uL (152-406)
--- NOTE | 2024-04-02 06:43 | ECHO ---
HEIGHT: 5 ft 1 in WEIGHT: 184 lb 0 oz DATE OF STUDY: 04/01/[address]: Marcos Man MD 2-DIMENSIONAL: YES M.MODE: YES DOPPLER: YES COLOR FLOW: YES TDS: YES PORTABLE: YES DEFINITY: BUBBLE STUDY: DIAGNOSIS: CHEST PAIN CARDIAC HISTORY: CATHERIZATION: YES SURGERY: NO PROSTHETIC VALVE: NO PACEMAKER: NO MEASUREMENTS (cm) DIASTOLIC (NORMALS) SYSTOLIC (NORMALS) IVSd 1.2 (0.6-1.2) LA Diam 1.7 (1.9-4.0) LVEF 65% LVIDd 3.3 (3.5-5.7) LVIDs 2.1 (2.0-3.5) %FS 35% LVPWd 1.3 (0.6-1.2) Ao Diam 2.6 (2.0-3.7) 2 DIMENSIONAL ASSESSMENT: RIGHT ATRIUM: POOR WINDOWS LEFT ATRIUM: POOR WINDOWS RIGHT VENTRICLE: POOR WINDOWS LEFT VENTRICLE: POOR WINDOWS TRICUSPID VALVE: POOR WINDOWS MITRAL VALVE: POOR WINDOWS PULMONIC VALVE: POOR WINDOWS AORTIC VALVE: POOR WINDOWS PERICARDIAL EFFUSION: POOR WINDOWS AORTIC ROOT: POOR WINDOWS LEFT VENTRICULAR WALL MOTION: DOPPLER/COLOR FLOW: COMMENTS: 1. VERY LIMITED EXAM DUE TO POOR WINDOWS 2. OVERALL LEFT VENTRICULAR EJECTION FRACTION APPEARS NORMAL TECHNOLOGIST: KINGSLEY WILDER
[2024-04-02] MEDS: NA CHLORIDE 0.9% 1,000 ML ONE (11:44)
[2024-04-02] MEDS: LIDOCAINE HCL/EPINEPHRINE 20 ML MDV ONE (11:51)
[2024-04-02] MEDS ORDERED: propofoL 200 MG/20 ML VIAL IV ONE (12:08)
[2024-04-02] MEDS ORDERED: ONDANSETRON 4 MG/2 ML VIAL ONE (12:08)
[2024-04-02] MEDS ORDERED: FENTANYL CITR 100 MCG/2 ML ONE (12:08)
[2024-04-02] MEDS ORDERED: LIDOCAINE 2% MPF 5 ML VIAL ONE (12:08)
--- NOTE | 2024-04-02 13:38 | P.OP ---
Preoperative diagnosis: LEFT Chest Wall Abscess Postoperative diagnosis: LEFT Chest Wall Abscess Primary procedure: Debridement of LEFT Chest Wall Abscess / Wound Secondary procedure: Biopsy of LEFT Breast / Chest Tissue Anesthesia: GETA Estimated blood loss: <5cc Specimen: Cultures, Biopsy of Surgical Site Findings: multiloculated collection of LEFT Chest Complications: None Transferred to: Recovery Room Condition: Good
[2024-04-02] MEDS: MORPHINE 4 MG/ML SYR ONE (13:57)
[2024-04-02] MEDS: MEPERIDINE HCL 25 MG/ML SYR ONE (14:05)
--- NOTE | 2024-04-02 14:32 | OP ---
Date of Procedure: 04/02/2024 Surgeon: Toby Savage MD, Preoperative Diagnosis: Left chest wall abscess. Postoperative Diagnosis: Left chest wall abscess. Procedure Performed: Debridement of left chest wall abscess/wound. Secondary Procedure: Biopsy of left breast/chest tissue. Anesthesia: General endotracheal. Estimated Blood Loss: 5 mL. Specimens: Culture sent for both aerobic and anaerobic speciation, biopsy of surgical site. Findings: Multiloculated collection of the left chest consistent with abscess. Complications: None. Condition: The patient was transferred to the recovery room in good condition. Procedure In Detail: After informed consent was obtained, the patient was brought to the operating r oom, prepped in the usual sterile fashion. After adequate anesthesia was achieved, I opened up an ar ea of the left chest wall where a previous open draining wound was evident, using a 15 blade and elec trocautery. At this point, I digitized the area and found some murky-colored fluid consistent with a n abscess behind multiloculated collection. This was cultured with both aerobic and anaerobic specia tion. At this point, I digitized the entire area as it was encountered, it was murky-colo red fluid consistent with possible abscess/infected seroma site. After this was completed, I palpate d the area, was approximately 18 cm x 10 cm with epithelialized surface. I then used a curette to re move all nonviable tissue. I took a small biopsy of some tissue in the area, which did not appear ov erly abnormal, but the patient has a history of breast cancer and as such, I opted to take a small bi opsy of this area adjacent to the wound to ensure there was no malignancy in this area, but no obviou s malignancy was encountered. At this point, I irrigated the area copiously and achieved hemostasis with minimal electrocautery. The wound was then packed with a Kerlix damp to dry with Vashe and a st erile dressing placed over top. The patient tolerated the procedure without incident or complication , transected to PACU in good condition. All counts were correct at the end of the case. TK/MODL Voice ID: [id number] Report ID: [id number]
[2024-04-02] MEDS: HYDROCODONE/APAP 5/325 MG TAB PO PRN (20:52)
[2024-04-02 22:58] LABS: Absolute Basophils 0.1 K/uL (0-0.5); Absolute Eosinophils 0.4 K/uL (0-0.5); Absolute Neutrophil 6.1 K/uL (1.8-8.0); Platelets 240 thou/uL (152-406)
[2024-04-02 23:08] LABS: Absolute Lymphocytes (CBC) 1.4 K/uL (0.7-4.9); Absolute Monocytes 0.9 K/uL (0.1-1.3); Eosinophils % 4.3 % (0-4.4); Hematocrit 26.4 % (36.0-45.0); Lymphocytes % 15.7 % (15.3-44.8); MCH 30.3 pg (27.0-35.0); MCHC 34.1 g/dL (32.0-36.0); MCV 88.6 fL (80-100); MPV 8.8 fL (7.6-11.3); Monocytes % 10.4 % (3.3-12.3); Neutrophils % 68.6 % (41.7-73.7); Nucleated Red Blood Cells % 0.2 % (0-0); RBC Red Blood Cell Count 2.98 M/uL (3.86-4.86); Red Cell Distribution Width 15.3 % (12.1-15.2)
[2024-04-03 01:08] LABS: Blood Morphology Comment NOT SEEN (NOT SEEN); Platelet Estimate ADEQ; Toxic Granulation PRESENT; White Blood Cell Scan OK (OK)
[2024-04-03 06:19] LABS: Absolute Eosinophils 0.3 K/uL (0-0.5); Absolute Lymphocytes (CBC) 0.7 K/uL (0.7-4.9); Absolute Monocytes 0.6 K/uL (0.1-1.3); Absolute Neutrophil 2.8 K/uL (1.8-8.0); Basophils % 0.4 % (0-1.3); Eosinophils % 7.6 % (0-4.4); Hematocrit 28.9 % (36.0-45.0); Hemoglobin 9.4 g/dL (12.0-15.0); Lymphocytes % 15.2 % (15.3-44.8); MCH 28.5 pg (27.0-35.0); MCHC 32.5 g/dL (32.0-36.0); MCV 87.8 fL (80-100); MPV 7.9 fL (7.6-11.3); Monocytes % 12.8 % (3.3-12.3); Nucleated Red Blood Cells % 0.1 % (0-0); Platelets 325 thou/uL (152-406); RBC Red Blood Cell Count 3.29 M/uL (3.86-4.86); Red Cell Distribution Width 15.9 % (12.1-15.2)
[2024-04-03 06:31] LABS: ALT/SGPT 35 U/L (13-56); AST/SGOT 36 U/L (15-37); Albumin 1.8 g/dL (3.4-5.0); Albumin/Globulin Ratio 0.4 (1.1-1.8); Alkaline Phosphatase 158 U/L (45-117); Anion Gap 12.2 mEq/L (5.0-15.0); BUN Blood Urea Nitrogen 10 mg/dL (7-18); Bicarbonate 20 mEq/L (21-32); Globulin 4.5 g/dL (2.3-3.5); Glomerular Filtration Rate 98 ml/min (=/>90); Glucose Level 88 mg/dL (74-106); Magnesium 1.7 mg/dL (1.6-2.4); Potassium 3.2 mEq/L (3.5-5.1); Protein, Total 6.3 g/dL (6.4-8.2); Sodium Level 142 mEq/L (136-145)
[2024-04-03 06:32] LABS: Bilirubin Total < 0.2 mg/dL (0.2-1.0)
[2024-04-03 21:24] VITALS: O2SAT 98
[2024-04-04] MEDS: VANCOMYCIN 1.5 GM in NA CHLORIDE 0.9% 500 ML IVPB SCH (02:02)
[2024-04-04 06:25] LABS: MPV 7.5 fL (7.6-11.3); Platelets 321 thou/uL (152-406)
[2024-04-04] MEDS: dexAMETHasone 4 MG/ML VIAL IV SCH (10:28)
--- NOTE | 2024-04-04 12:59 | P.PN ---
Subjective Date of Service: 04/04/24 Chief Complaint: chest pain Subjective: Improving (Patient feels significant improvement from her previous preoperative status.) Physical Examination - Vital Signs Temperature: 97.9 F Blood Pressure: 104/63 Pulse: 81 Respirations: 16 Pulse Ox (%): 99 - Physical Exam General: Alert, In no apparent distress, Cooperative Integumentary: Other (Left chest area appears clean and dry well packed at this time. No evidence of cellulitis or infection. Improvement of tenderness on examination as well.) Assessment And Plan - Plan -Continue daily dressing changes as described with Vashe damp to dry and Curlex roll packing. -Continue antibiotic coverage. -Continue pain management. -Follow-up with me as outpatient in 1 week. -Continue medical management per primary team.
[2024-04-05 04:47] LABS: MPV 7.4 fL (7.6-11.3); Platelets 345 thou/uL (152-406)
--- NOTE | 2024-04-05 10:22 | P.PN ---
Subjective Date of Service: 04/05/24 Chief Complaint: chest pain Subjective: No new changes, No C/O voiced, Tolerating diet, Ambulating, Improving Review of Systems 10-point ROS is otherwise unremarkable Physical Examination - Vital Signs Temperature: 98.1 F Blood Pressure: 105/59 Pulse: 78 Respirations: 16 Pulse Ox (%): 98 - Physical Exam General: Alert, In no apparent distress HEENT: Atraumatic, PERRLA, EOMI Neck: Supple, JVD not distended Respiratory: Clear to auscultation bilaterally, Normal air movement Cardiovascular: Regular rate/rhythm, Normal S1 S2 Gastrointestinal: Normal bowel sounds, No tenderness Musculoskeletal: No tenderness Integumentary: No rashes Neurological: Normal speech, Normal tone, Normal affect Lymphatics: No axilla or inguinal lymphadenopathy - Studies Medications List Reviewed: Yes Assessment And Plan - Current Problems (Diagnosis) (1) Chest pain Current Visit: Yes Status: Acute Plan: Patient with recent PCI LAD, chest pain is non cardiac, secondary to chest wall abscess s/p I&D continue ASA 81 mg daily continue Plavix 75 mg daily (2) HTN (hypertension) Current Visit: Yes Status: Acute Plan: continue patient home medications of Toprol XL and chlorothalidone.
[2024-04-05 12:05] VITALS: BP 124/82; TEMP 98.2
--- NOTE | 2024-04-05 12:20 | EKG ---
Test Date: 2024-03-31 Test Time: 17:57:33 Kennel Aide: BP MEASUREMENT RESULTS: Intervals: Rate: 91 AR: 148 QRSD: 98 QT: 372 QTc: 457 [place]: P: 63 AR: 148 QRS: 65 T: 52 INTERPRETIVE STATEMENTS: Normal sinus rhythm Normal ECG Compared to ECG 02/19/2024 10:37:22 No significant changes Electronically Signed On 04-05-24 12:14:55 FLEET SERVICE CLERK by Nirav Emery
[2024-04-06] MEDS ORDERED: CLOPIDOGREL 75 MG TABLET PO SCH (09:00)
--- NOTE | 2024-04-11 19:09 | CON ---
Date of Consultation: 04/01/2024 Brief Hpi: The patient is a 73-year-old woman with a past medical history of breast cancer status po st left mastectomy, diabetes, hypertension, history of coronary artery stent secondary to coronary ar rosa disease and radiation to the left chest. She presents with new left-sided chest pain. She had her breast surgery in the past with Dr. Kinga Bermudez up in the [facility] and had received radia tion. She had some degree of chronic wound in the left breast, which exacerbated after receiving rad iation treatment; however, had continuously slowly improved up until recently when she noted to have significant worsening of the area with tenderness, pain, swelling, and drainage. As such, she came t o the emergency room with the above-stated complaints. Past Medical History: Breast cancer, diabetes, hypertension, coronary artery disease. Past Surgical History: Includes stent, mastectomy. She also has a history of atrial fibrillation, o steoarthritis of bilateral knees. She has had 4 hernia surgeries and tubal ligation. Family History: Significant for heart disease in her mother. Sister had stomach cancer and a brothe r had stomach cancer and lung cancer. Social History: She denies smoking, alcohol, or recreational drug use. Allergies: TO PENICILLIN. Home Medications: Include, Tylenol, Arimidex, Lipitor, [place], hydrocodone, meclizine, meloxicam, metformin, metoprolol, multivitamin, Topamax, vitamin D, vitamin K2, zinc, Ambien. Social History: She denies alcohol, smoking, or recreational drug use. Review of Systems: Ten-point review of systems other than HPI, she has a cough, shortness of breath at times, and some c hest pain. Physical Examination: At the time of my examination, General: She is awake, alert, and oriented. Psychiatric: Appropriate, conversive. HEENT: Normocephalic. Sclerae are icteric. Mucous membranes are moist. Oropharynx clear. Neck: Supple. No JVD. Chest: She has some redness of the chest wall on the left with draining murky material consistent wi th possible abscess. She also has a partially open wound on the lateral aspect of this following the previous mastectomy incision. She has an open wound on the left chest as well as described, which i s draining abscess-like material. There is general cellulitis to the chest area. There is thickenin g, fullness and firmness to the skin as well, consistent with radiation effect. Abdomen: Soft, nontender, nondistended. No rebound. No guarding. No focal peritonitis. Extremities: No clubbing, cyanosis, or edema. Skin: Warm and dry otherwise. Laboratory Data: Revealed a white blood cell count of 9.0, hemoglobin is 9.3, hematocrit 28.1, plate let count was 320, 77% was her neutrophils. PT was 14.0, INR 1.3. Chemistry showed a sodium 136, po tassium 3.3, chloride 109, carbon dioxide 19, BUN 29, creatinine 0.8, glucose is 85, calcium 8.9, mag nesium 2.3, total bilirubin 0.2, AST 30, ALT 26, alkaline phosphatase was 126. Troponin on multiple checks, 91.4 on the first check, 91.6 on the following check. She had imaging performed as well, which included a CT of the chest, PE protocol, which is officially read as no evidence of pulmonary emboli to the subsegmental level. Linear and reticular opacificati on of left upper lobe could be infectious and related to scarring. There was no mention of the skin changes. However, I have evaluated this myself and noted there to be evidence of phlegmon/inflammato ry change in the left chest wall consistent with possible infection or possible abscess formation. Assessment And Plan: This is a 73-year-old woman who comes in with signs and symptoms of an infected left chest wound. 1. IV fluid hydration. 2. Antibiotic coverage. 3. Wound care discussed with packing of the wound and decontamination in addition to topical antibiot ic. 4. I have explained the risks, benefits, and alternatives of incision and drainage of the left chest abscess and debridement of the wound with biopsy of the tissue including, but not limited to bleeding , infection, damage to surrounding tissue, need for further operation and procedures, ongoing wound c are. The patient displayed understanding of the above-stated plan and agreed to proceed as indicated . ELVIN/LOY Voice ID: [id number] Report ID: [id number]
== END 2024-04-05 14:14 | disposition home or self-care (01) | DRG 572 ==
LOC: ER 16:52 → ERHOLD 20:31 → 2ND 04-01 07:51
PROVIDERS: ADMIT Internal Medicine; ATTEND Hospitalist
PROC: 0HBU0ZX Excision of Left Breast, Open Approach, Diagnostic (ICD-10-PCS; 2024-04-02)
PROC: 0JB60ZZ Excision of Chest Subcutaneous Tissue and Fascia, Open Approach (ICD-10-PCS; principal; 2024-04-02 13:45)
DX: L02.213 Cutaneous abscess of chest wall (principal); E11.9 Type 2 diabetes mellitus without complications; I48.91 Unspecified atrial fibrillation; D50.9 Iron deficiency anemia, unspecified; I10 Essential (primary) hypertension; I25.10 Atherosclerotic heart disease of native coronary artery without angina pectoris; R79.89 Other specified abnormal findings of blood chemistry; Z88.0 Allergy status to penicillin; Z85.3 Personal history of malignant neoplasm of breast; Z95.5 Presence of coronary angioplasty implant and graft; Z90.13 Acquired absence of bilateral breasts and nipples; Z79.84 Long term (current) use of oral hypoglycemic drugs; Z79.899 Other long term (current) drug therapy
CPT/HCPCS: 36415; 71275; 80048; 80053; 80061; 80076; 80202; 82947; 83735; 83880; 84145; 84484; 85025; 85049; 85610; 85730; 87070; 87075; 87077; 87186; 87205; 88305; 93005; 93306; 99284; J0696; J1100; J2003; J2175; J2405; J2704; J3010; J7030; J7040; Q9967